=== PATIENT | female | born 1935 | race Caucasian/White ===

== ENCOUNTER 2018-06-23 09:13 | Day surgery (SDC) | payer OTHER ==
[2018-06-18 10:16] LABS: Absolute Lymphocytes (CBC) 1.5 K/uL (0.7-4.9); Absolute Monocytes 0.6 K/uL (0.1-1.3); Absolute Neutrophil 3.9 K/uL (1.8-8.0); Basophils % 1.2 % (0-1.3); Eosinophils % 6.5 % (0-4.4); Hematocrit 38.2 % (36.0-45.0); Lymphocytes % 22.6 % (15.3-44.8); MCH 29.7 pg (27.0-35.0); MCV 88.6 fL (80-100); MPV 8.9 fL (7.6-11.3); Monocytes % 8.9 % (3.3-12.3); RBC Red Blood Cell Count 4.31 M/uL (3.86-4.86)
--- NOTE | 2018-06-18 10:19 | RAD REPORT ---
EXAM DESCRIPTION: Julian Rouse (2 Views)06/18/2018 9:57 am CLINICAL HISTORY: Abdominal pain/preop exam. Atrial fibrillation. COMPARISON: 2010 FINDINGS: The lungs appear clear of acute infiltrate. The heart is mildly enlarged. Calcified lung granulomas are present. Scoliosis involves the thoracolumbar spine. IMPRESSION: No acute abnormalities displayed
[2018-06-18 10:30] LABS: Potassium 3.8 mmol/L (3.5-5.1)
--- OUTSIDE RECORDS SUMMARY | 2018-06-23 09:36 | XMS REPORT ---
:1935 Author Organization eClinicalWorks Care Team Providers Name Role Phone Shirley, Na Provider Role Unavailable Allergies, Adverse Reactions, Alerts Substance Reaction Event Type doxycycline Info Not Available Drug Allergy penicillin Info Not Available Drug Allergy codeine Info Not Available Drug Allergy Nabumetone Info Not Available Drug Allergy Hemocyte Plus Info Not Available Drug Allergy Ciprofloxacin Info Not Available Drug Allergy Bactrim DS Info Not Available Drug Allergy Problems Problem Type Condition Code Onset Dates Condition Status Problem Mixed hyperlipidemia E78.2 Active Problem 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 Active Problem Chronic atrial fibrillation I48.2 Active Problem Hypothyroidism E03.9 Active Problem DJD (degenerative joint disease) M19.90 Active Problem Hypertension I10 Active Problem Inguinal hernia K40.90 Active Problem Restless legs syndrome G25.81 Active Problem Chronic back pain M54.9 Active Problem Urinary incontinence R32 Active Assessment Urinary incontinence R32 Active Assessment Thinning hair L65.9 Active Assessment Hypertension I10 Active Problem Degeneration of lumbosacral M51.37 Active intervertebral disc Assessment Hypothyroidism E03.9 Active Problem Cervical disc herniation M50.20 Active Assessment Mixed hyperlipidemia E78.2 Active Problem Umbilical hernia without mention of K42.9 Active obstruction or gangrene Medications Medication Code Code Instructions Start End Date Status Dosage System Date Lotemax [facility] 99713238983 0.5 % Ophthalmic Active 1 drop into Four times a day affected eye Restasis [facility] 83694537431 0.05 % Active 1 drop into Ophthalmic Twice affected eye a day Synthroid [facility] 19009460170 75 MCG Orally Active 1 tablet on Once a day an empty stomach in the morning Tricor [facility] 62116528164 48 MG Orally Active 1 tablet Once a day Neurontin [facility] 87095370903 300 MG Orally Active 1 capsule Once a day before bedtime Lipitor [facility] 14965790054 40 MG Orally Active 1 tablet Once a day Aspir-81 [facility] 59185849502 81 MG Orally Active 1 tablet Once a day Betapace [facility] 69105173588 120 MG Orally Active 1 tablet every 12 hrs Results No Known Results Summary Purpose eClinicalWorks Submission
--- OUTSIDE RECORDS SUMMARY | 2018-06-23 09:36 | XMS REPORT ---
:1935 Author Organization eClinicalWorks Care Team Providers Name Role Phone Joyce Woodruff Provider Role Unavailable Allergies, Adverse Reactions, Alerts Substance Reaction Event Type Nabumetone Info Not Available Drug Allergy Hemocyte Plus Info Not Available Drug Allergy Ciprofloxacin Info Not Available Drug Allergy Bactrim DS Info Not Available Drug Allergy Problems Problem Type Condition Code Onset Dates Condition Status Problem DJD (degenerative joint disease) M19.90 Active Problem Hypertension I10 Active Problem Hypothyroidism E03.9 Active Problem Muscle ache M79.1 Active Problem Chronic atrial fibrillation I48.2 Active Problem Acute right-sided thoracic back pain M54.6 Active Problem Cervical disc herniation M50.20 Active Problem Degeneration of lumbosacral M51.37 Active intervertebral disc Problem Mixed hyperlipidemia E78.2 Active Problem Umbilical hernia without mention of K42.9 Active obstruction or gangrene Assessment Acute right-sided thoracic back pain M54.6 Active Assessment Muscle ache M79.1 Active Problem Restless legs syndrome G25.81 Active Problem Inguinal hernia K40.90 Active Problem Urinary incontinence R32 Active Problem 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 Active Problem Chronic back pain M54.9 Active Medications Medication Code Code Instructions Start End Date Status Dosage System Date Neurontin [facility] 89269591397 300 MG Orally Active 1 capsule Once a day before bedtime Synthroid [facility] 77160911751 75 MCG Orally Active 1 tablet on Once a day an empty stomach in the morning Medrol [facility] 84208751903 4 MG Orally as Apr 11, Active as directed directed [address] [facility] 14691788739 120 MG Orally Active 1 tablet every 12 hrs Restasis [facility] 41897271965 0.05 % Active 1 drop into Ophthalmic Twice affected eye a day Lotemax [facility] 83755891912 0.5 % Ophthalmic Active 1 drop into Four times a day affected eye Lipitor [place] 38144659110 40 MG Orally Active 1 tablet Once a day Tricor [facility] 28562246232 48 MG Orally Active 1 tablet Once a day Synthroid [facility] 13183800550 75 MCG Active TAKE 1 TABLET BY MOUTH EVERY DAY Aspir-[address] [facility] 77484623362 81 MG Orally Active 1 tablet Once a day Results No Known Results Summary Purpose eClinicalWorks Submission
--- OUTSIDE RECORDS SUMMARY | 2018-06-23 09:36 | XMS REPORT ---
[...] Active Problem Urinary incontinence R32 Active Assessment Hypothyroidism E03.9 Active Assessment Mixed hyperlipidemia E78.2 Active Problem Degeneration of lumbosacral M51.37 Active intervertebral disc Assessment Hypertension I10 Active Problem Cervical disc herniation M50.20 Active Assessment Annual visit for general adult Z00.00 Active medical examination without abnormal findings Problem Umbilical hernia without mention of K42.9 Active obstruction or gangrene Medications Medication Code Code Instructions Start End Date Status Dosage System Date Synthroid [facility] 29936082555 75 MCG Orally Active 1 tablet on Once a day an empty stomach in the morning Synthroid [facility] 04129404978 75 MCG Active TAKE 1 TABLET BY MOUTH EVERY DAY Betapace [facility] 23440673991 120 MG Orally Active 1 tablet every 12 hrs Aspir-81 [facility] 50291301112 81 MG Orally Active 1 tablet Once a day Lotemax [facility] 02869186406 0.5 % Ophthalmic Active 1 drop into Four times a day affected eye Lipitor [facility] 64229110727 40 MG Orally Active 1 tablet Once a day Neurontin [facility] 32386845835 300 MG Orally Active 1 capsule Once a day before bedtime Tricor [facility] 27163704744 48 MG Orally Active 1 tablet Once a day Restasis [facility] 70267998917 0.05 % Active 1 drop into Ophthalmic Twice affected eye a day Results No Known Results Summary Purpose eClinicalWorks Submission
--- OUTSIDE RECORDS SUMMARY | 2018-06-23 09:36 | XMS REPORT ---
[...] of K42.9 Active obstruction or gangrene Assessment Influenza vaccine administered Z23 Active Problem Restless legs syndrome G25.81 Active Problem Inguinal hernia K40.90 Active Problem Urinary incontinence R32 Active Problem 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 Active Problem Chronic back pain M54.9 Active Medications Medication Code Code Instructions Start End Date Status Dosage System Date Lotemax [facility] 00409380920 0.5 % Ophthalmic Active 1 drop into Four times a day affected eye Restasis [facility] 89164614783 0.05 % Active 1 drop into Ophthalmic Twice affected eye a day Synthroid [facility] 40444796357 75 MCG Orally Active 1 tablet on Once a day an empty stomach in the morning Medrol [facility] 02587920553 4 MG Orally as Apr 11, Active as directed directed 2017 [facility] 84210059799 81 MG Orally Active 1 tablet Once a day Neurontin [facility] 63985246986 300 MG Orally Active 1 capsule Once a day before bedtime Synthroid [facility] 79885803326 75 MCG Active TAKE 1 TABLET BY MOUTH EVERY DAY Lipitor [facility] 69107419243 40 MG Orally Active 1 tablet Once a day Tricor [facility] 44670558377 48 MG Orally Active 1 tablet Once a day Betapace [facility] 11264964335 120 MG Orally Active 1 tablet every 12 hrs Results No Known Results Immunizations Vaccine Administration Date FluAD May 20, 2018 Summary Purpose eClinicalWorks Submission
--- OUTSIDE RECORDS SUMMARY | 2018-06-23 09:36 | XMS REPORT ---
:1935 Author Organization eClinicalWorks Care Team Providers Name Role Phone Joyce Woodruff Provider Role Unavailable Allergies No Known Allergies Problems Problem Type Condition Code Onset Dates [...] mention of K42.9 Active obstruction or gangrene Problem Restless legs syndrome G25.81 Active Problem Inguinal hernia K40.90 Active Problem Urinary incontinence R32 Active Problem 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 Active Problem Chronic back pain M54.9 Active Medications No Known Medications Results No Known Results Summary Purpose eClinicalApptentive Submission
[2018-06-23] MEDS ORDERED: Ringers Lactate 1,000 ML IV ONE (10:11)
[2018-06-23] MEDS ORDERED: CEFAZOLIN/SWI 1gm 1 GM/10 ML SYR ONE (10:11)
[2018-06-23] MEDS ORDERED: ROCURONIUM 50 MG/5 ML VIAL IV ONE (10:51)
[2018-06-23] MEDS ORDERED: ONDANSETRON 4 MG/2 ML VIAL ONE (10:51)
[2018-06-23] MEDS ORDERED: LIDOCAINE 1% MPF 2 ML AMPULE ONE (10:51)
[2018-06-23] MEDS ORDERED: PROPOFOL 200 MG/20 ML VIAL IV ONE (10:51)
[2018-06-23] MEDS ORDERED: FENTANYL CITR 100 MCG/2 ML ONE (10:51)
[2018-06-23] MEDS ORDERED: NEOSTIGMINE 1 MG/ML -5 ML SYRINGE ONE ×2 (12:18→12:22)
[2018-06-23] MEDS ORDERED: GLYCOPYRROLATE 0.2 MG/ML SYR ONE (12:18)
[2018-06-23] MEDS: MEPERIDINE HCL 50 MG/ML AMP ONE ×4 (12:46→13:03)
[2018-06-23] MEDS ORDERED: MEPERIDINE HCL 50 MG/ML AMP ONE (13:12)
--- NOTE | 2018-06-23 23:36 | OP ---
Date of Procedure: 06/23/2018 Surgeon: Boris Wong MD Financial Aid Coordinator: WILLY Pena Preoperative Diagnoses: Incarcerated ventral hernia, left inguinal hernia. Postoperative Diagnoses: Incarcerated ventral hernia, left inguinal hernia. Procedure: Laparoscopic assisted repair of incarcerated ventral hernia and repair of left inguinal h ernia. Estimated Blood Loss: Minimal. Specimen: Hernia sac x2. Findings: As above. Anesthesia: General. Complications: None. Disposition: The patient tolerated procedure in stable condition and was taken to Recovery in good g eneral condition. Operative Note: The patient was brought to the OR and placed in supine position. General anesthesia was began. The patient was prepped and draped in the usual sterile fashion. Marcaine 0.5% was infi ltrated locally. A 15-blade was used to make a 2 cm left upper quadrant incision. Subcutaneous tiss ues divided. Fascia and plane divided, #1 Vicryl stay suture placed. Peritoneal cavity was entered with sharp and blunt dissection. A 12 mm trocar was placed into the peritoneal cavity and a 5 mm tro car placed in the left lower quadrant. Laparoscopy revealed incarcerated omentum into this periumbil ical hernia mostly on the left side and all the omentum was reduced with sharp and blunt dissection. Bleeding controlled with cautery. Then, 4 cm left periumbilical incision was made. Subcutaneous ti ssue divided. Hernia sac identified and excised, sent to Pathology as specimen, and then 3 cm defect remained, #1 PDS and #1 Prolene. I think she had a side pocket there that was closed with #1 Prolen e, was used to close the fascial defect. Then pneumoperitoneum reestablished. A Bard balloon mesh s ystem 15 x 10 cm placed into the peritoneal cavity. The standard technique used and the balloon syst em utilized and the entire coverage of the hernia defect was accomplished with at least 3 cm border i n every direction and then AbsorbaTack was used to secure the mesh to the peritoneal surface. Then a ll trocars removed in direct vision. Stay sutures were tied to each other to reapproximate the fasci al defect. Subcutaneous wounds were irrigated. Bleeding controlled with cautery. A 3-0 chromic was used to approximate the subcutaneous tissue and close the skin and then left lower quadrant a 4 cm i ncision was made, subcutaneous tissue divided. Shree fascia identified and divided. Aponeurosis id entified and mobilized inferiorly to expose shelving edge. Ilioinguinal nerve identified and retract ed out of the field of dissection. Indirect sac and cord round ligament identified, excised, sent to Pathology as specimen. Tied with 2-0 Prolene and 2-0 chromic sutures as needed. Then Marlex mesh p lug placed in the internal ring, secured with VersaTack stapler. Onlay mesh placed on the inguinal f manisha, secured medially to the pubic tubercle, inferiorly to the shelving edge, superiorly to the conj oined tendon, laterally to each other, and then ilioinguinal nerve placed back in their anatomic loca tion. A 2-0 Prolene used to close the aponeurosis, 3-0 chromic used to approximate the subcutaneous tissue and close the skin. Sterile dressing was applied. The patient was awakened and taken to [facility] in good general condition. Discharge Note: The patient will go to Day Surgery and home when stable. Disposition: Home. Condition: Stable. Discharge Instructions: Resume home medications and diet. Activity as tolerated. No heavy lifting. Remove outer dressing in 2 days. Shower. Keep wound clean and dry. Keep Steri-Strips on at all t imes. Abdominal binder as ordered and incentive spirometry q.1 hour while awake and Tylenol or Advil for pain. Follow up in my office in 1 week. Call for appointment. KATIE/CIARA Voice ID: [id number] Report ID: [id number]
== END 2018-06-23 14:45 | disposition home or self-care (01) ==
LOC: OR 09:13
PROVIDERS: ATTEND Surgery
PROC: 0WUF0JZ Supplement Abdominal Wall with Synthetic Substitute, Open Approach (ICD-10-PCS; principal; 2018-06-23 10:30)
PROC: 0YU60JZ Supplement Left Inguinal Region with Synthetic Substitute, Open Approach (ICD-10-PCS; 2018-06-23 10:30)
DX: K43.6 Other and unspecified ventral hernia with obstruction, without gangrene (principal); K40.90 Unilateral inguinal hernia, without obstruction or gangrene, not specified as recurrent; I48.91 Unspecified atrial fibrillation; I10 Essential (primary) hypertension; E07.9 Disorder of thyroid, unspecified
CPT/HCPCS: 36415; 49505; 49561; 49568; 71046; 80048; 85025; 88302 ×2; J0690; J2001; J2175 ×2; J2405; J2704; J2710 ×2; J3010

== ENCOUNTER → 2018-10-24 | Day surgery (SDC) | payer OTHER ==
--- OUTSIDE RECORDS SUMMARY | 2018-10-24 09:31 | XMS REPORT ---
[...] End Date Status Dosage System Date Lotemax [facility] 02331822100 0.5 % Ophthalmic Active 1 drop into Four times a day affected eye Restasis [facility] 92577249584 0.05 % Active 1 drop into Ophthalmic Twice affected eye a day Synthroid [facility] 12192040426 75 MCG Orally Active 1 tablet on Once a day an empty stomach in the morning Tricor [facility] 28462607944 48 MG Orally Active 1 tablet Once a day Neurontin [facility] 71789504714 300 MG Orally Active 1 capsule Once a day before bedtime Lipitor [facility] 79807381183 40 MG Orally Active 1 tablet Once a day Aspir-81 [facility] 44422087127 81 MG Orally Active 1 tablet Once a day Betapace [facility] 58728570123 120 MG Orally Active 1 tablet every 12 hrs Results No Known Results Summary Purpose eClinicalWorks Submission
--- OUTSIDE RECORDS SUMMARY | 2018-10-24 09:31 | XMS REPORT ---
[...] End Date Status Dosage System Date Synthroid [facility] 61950049615 75 MCG Orally Active 1 tablet on Once a day an empty stomach in the morning Synthroid [facility] 01002816061 75 MCG Active TAKE 1 TABLET BY MOUTH EVERY DAY Betapace [facility] 82673777534 120 MG Orally Active 1 tablet every 12 hrs Aspir-81 [facility] 26122669415 81 MG Orally Active 1 tablet Once a day Lotemax [facility] 84363743626 0.5 % Ophthalmic Active 1 drop into Four times a day affected eye Lipitor [facility] 20942313557 40 MG Orally Active 1 tablet Once a day Neurontin [facility] 40644665548 300 MG Orally Active 1 capsule Once a day before bedtime Tricor [facility] 70917826482 48 MG Orally Active 1 tablet Once a day Restasis [facility] 00035815959 0.05 % Active 1 drop into Ophthalmic Twice affected eye a day Results No Known Results Summary Purpose eClinicalWorks Submission
--- OUTSIDE RECORDS SUMMARY | 2018-10-24 09:31 | XMS REPORT ---
[...] Date Status Dosage System Date Neurontin [facility] 10976435202 300 MG Orally Active 1 capsule Once a day before bedtime Synthroid [facility] 30851872628 75 MCG Orally Active 1 tablet on Once a day an empty stomach in the morning Medrol [facility] 77207418307 4 MG Orally as Apr 11, Active as directed directed 2017 Betapace [facility] 36544955715 120 MG Orally Active 1 tablet every 12 hrs Restasis [facility] 87846109892 0.05 % Active 1 drop into Ophthalmic Twice affected eye a day Lotemax [facility] 29293905498 0.5 % Ophthalmic Active 1 drop into Four times a day affected eye Lipitor [place] 47527175288 40 MG Orally Active 1 tablet Once a day Tricor [facility] 14205184079 48 MG Orally Active 1 tablet Once a day Synthroid [facility] 84213186706 75 MCG Active TAKE 1 TABLET BY MOUTH EVERY DAY Aspir-81 [facility] 23563128748 81 MG Orally Active 1 tablet Once a day Results No Known Results Summary Purpose eClinicalWorks Submission
--- OUTSIDE RECORDS SUMMARY | 2018-10-24 09:32 | XMS REPORT ---
[...] Medications Results No Known Results Summary Purpose [facility] Submission
--- OUTSIDE RECORDS SUMMARY | 2018-10-24 09:32 | XMS REPORT ---
[...] Dosage System Date Lotemax [facility] 87683520071 0.5 % Ophthalmic Active 1 drop into Four times a day affected eye Restasis [facility] 02932936466 0.05 % Active 1 drop into Ophthalmic Twice affected eye a day Synthroid [facility] 94476644258 75 MCG Orally Active 1 tablet on Once a day an empty stomach in the morning Medrol [facility] 54362657102 4 MG Orally as Apr 11, Active as directed directed 2017 [facility] 28050181592 81 MG Orally Active 1 tablet Once a day Neurontin [facility] 36645022273 300 MG Orally Active 1 capsule Once a day before bedtime Synthroid [facility] 62808210574 75 MCG Active TAKE 1 TABLET BY MOUTH EVERY DAY Lipitor [facility] 87938600872 40 MG Orally Active 1 tablet Once a day Tricor [facility] 88573113539 48 MG Orally Active 1 tablet Once a day Betapace [facility] 65881160958 120 MG Orally Active 1 tablet every 12 hrs Results No Known Results Immunizations Vaccine Administration Date FluAD May 20, 2018 Summary Purpose eClinicalWorks Submission
--- OUTSIDE RECORDS SUMMARY | 2018-10-24 09:32 | XMS REPORT ---
[...] E03.9 Active Problem Muscle ache M79.1 Active Assessment Urinary incontinence R32 Active Problem Chronic atrial fibrillation I48.2 Active Assessment Blood tests for routine general Z00.00 Active physical examination Problem Acute right-sided thoracic back pain M54.6 Active Problem Cervical disc herniation M50.20 Active Problem Degeneration of lumbosacral M51.37 Active intervertebral disc Problem Mixed hyperlipidemia E78.2 Active Problem Umbilical hernia without mention of K42.9 Active obstruction or gangrene Assessment Mixed hyperlipidemia E78.2 Active Assessment Hypertension I10 Active Assessment Thinning hair L65.9 Active Assessment Hypothyroidism E03.9 Active Problem Restless legs syndrome G25.81 Active Problem Inguinal hernia K40.90 Active Problem Urinary incontinence R32 Active Problem 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 Active Problem Chronic back pain M54.9 Active Medications Medication Code Code Instructions Start End Date Status Dosage System Date Betapace [facility] 61611816715 120 MG Orally Active 1 tablet every [address] [facility] 36854025656 48 MG Orally Active 1 tablet Once a day Synthroid [facility] 40979445098 75 MCG Active TAKE 1 TABLET BY MOUTH EVERY DAY Synthroid [facility] 93386029901 75 MCG Orally Active 1 tablet on Once a day an empty stomach in the morning Restasis [facility] 49757099021 0.05 % Active 1 drop into Ophthalmic Twice affected eye a day Neurontin [facility] 22434417589 300 MG Orally Active 1 capsule Once a day before bedtime Lipitor [facility] 39499284151 40 MG Orally Active 1 tablet Once a day Medrol [facility] 77488132265 4 MG Orally as Apr 11, Active as directed directed 2017-[address] [facility] 57119250462 81 MG Orally Active 1 tablet Once a day Lotemax [facility] 76183006918 0.5 % Ophthalmic Active 1 drop into Four times a day affected eye Results No Known Results Summary Purpose eClinicalWorks Submission
--- NOTE | 2018-10-24 10:50 | RAD REPORT ---
EXAM DESCRIPTION: US - Guided FNA Non Breast - 10/24/2018 10:29 am CLINICAL HISTORY: E04.2 COMPARISON: Extremity Nonvascular Limited dated 09/20/2016; Thyroid Para Parotid Gland dated 10/09/2018 FINDINGS: Preoperative diagnosis: Right thyroid nodule. Post operative diagnosis: Same. Conscious Sedation: None Fluoroscopy time: None Contrast used: None Estimated blood loss: Minimal Specimens:4 x 25 gauge FNA samples The right neck was prepped and draped in the usual sterile fashion. 1% lidocaine was infiltrated into the subcutaneous tissues for local anesthesia. Real time ultrasound scanning of the right neck demon strated 1 cm nodule. Under ultrasound guidance, using multiple 25 gauge FNA needles, 4 specimens were obtained of this lesion and sent to pathology for evaluation. There were no complications. IMPRESSION: Successful ultrasound-guided right thyroid nodule FNA procedure.
== END ==
LOC: FNA 09:29
PROVIDERS: ATTEND Nurse Practitioner Family
PROC: 0G9H3ZX Drainage of Right Thyroid Gland Lobe, Percutaneous Approach, Diagnostic (ICD-10-PCS; principal; 2018-10-24)
PROC: BG44ZZZ Ultrasonography of Thyroid Gland (ICD-10-PCS; 2018-10-24)
DX: E04.2 Nontoxic multinodular goiter (principal)
CPT/HCPCS: 88162; 88305

== ENCOUNTER 2020-11-27 06:46 | Emergency (ER) | payer OTHER ==
--- OUTSIDE RECORDS SUMMARY | 2020-11-27 06:48 | XMS REPORT | Continuity of Care Document ---
:1935 Author Organization [facility] t Address [address] [place] [address] Care Team Providers Name Role Phone Unavailable Unavailable Unavailable Problems This patient has no known problems. Allergies, Adverse Reactions, Alerts Allergy Allergy Status Severity Reaction(s) Onset Inactive Treating Comm ents Source Name Type Date Date Clinician Hemocyte Adverse Active Info Not [facility] Bactrim Adverse Active Info Not [facility] Reaction Available [facility] Nabumeto Adverse Active Info Not [facility] Reaction Available [facility] [place] Ciproflo Adverse Active Info Not [facility] xacin Reaction Available [facility] Medications Ordered Filled Start Stop Current Ordering Indication Dosage Frequency Signature Comments Components Source Medication Medication Date Date Medication? Clinician (SIG) Name Name Medrol Medrol 2018-0 Yes Na Shirley [facility] Lotemax Lotemax Yes Na Shirley [address] [facility] Restasis Restasis Yes Na Shirley [address] [facility] [address] [facility] Synthroid Synthroid Yes Na Shirley [address] [facility] Tricor Tricor Yes Na Shirley [address] [facility] Neurontin Neurontin Yes Na Shirley [address] [facility] Lipitor Lipitor Yes Na Shirley [address] [facility] -81 Aspir-81 Yes Na Shirley [address] [facility] Synthroid Synthroid Yes Na Shirley TAKE [address] [facility] TABLET BY [facility] M[facility]TH [facility] EVERY DAY l [facility] ent [facility] Betapace Betapace Yes Na Shirley [address] [facility] Immunizations Ordered Filled Immunization Date Status Comments [facility] e Immunization Name Name FluAD FluAD 2019-06-[address] [facility] FluAD FluAD 2018-05-[address] [facility] Procedures This patient has no known procedures. Encounters Start End Encounter Admission Attending Care Care Encounter Source Date/Time Date/Time Type Type Clinicians Facility Department ID 2020-09-08 2020-09-08 Outpatient [facility] [id number] [facility] 2020-09-06 2020-09-06 Outpatient [facility] [id number] [facility] 2020-08-04 2020-08-04 Outpatient [facility] [id number] [facility] 2020-07-19 2020-07-19 Outpatient [facility] [id number] [facility] 2020-07-18 2020-07-18 Outpatient [facility] [id number] [facility] 2020-02-03 2020-02-03 [facility] [id number] [facility] 09[facility]40[facility]00 09:40:00 [facility] 2019-08-05 2019-08-05 [facility] [id number] [facility] 10[facility]20[facility]00 10:20:00 [facility] 2019-06-12 2019-06-12 [facility] [id number] [facility] 13[facility]20:00 13:20:00 [facility] 2019-02-11 2019-02-11 [facility] [id number] [facility] 10:00:00 10:00:00 [facility] 2018-08-15 2018-08-15 [facility] [id number] [facility] 10:15:00 10:15:00 [facility] 2018-05-20 2018-05-20 [facility] [id number] [facility] 09:15:00 09:15:00 [facility] 2018-04-18 2018-04-18 [facility] [id number] [facility] 09:18[facility]00 09:18:00 [facility] 2018-04-11 2018-04-11 [facility] [id number] 13:15:00 13:15:00 [facility] 2018-02-11 2018-02-11 [facility] [id number] [address] 09:30:00 09:30:00 [facility] 2017-11-27 2017-11-27 [facility] [id number] [facility] 08:15:00 08:15:00 [facility] Results This patient has no known results.
[2020-11-27 07:31] LABS: Absolute Lymphocytes (CBC) 1.3 K/uL (0.7-4.9); Basophils % 1.2 % (0-1.3); Hematocrit 32.5 % (36.0-45.0); Lymphocytes % 24.5 % (15.3-44.8); MPV 7.6 fL (7.6-11.3); RBC Red Blood Cell Count 3.66 M/uL (3.86-4.86)
[2020-11-27 07:50] LABS: BUN Blood Urea Nitrogen 15 mg/dL (7-18); Bicarbonate 31 mmol/L (21-32); Glucose Level 88 mg/dL (74-106); Magnesium 2.1 mg/dL (1.8-2.4); NT PRO-BNP 597 pg/mL (<450); Potassium 3.3 mmol/L (3.5-5.1); Sodium Level 144 mmol/L (136-145); Troponin (Emerg Dept Use Only) < 0.02 ng/mL (0.0-0.045)
--- NOTE | 2020-11-27 08:34 | RAD REPORT ---
EXAM DESCRIPTION: RAD - Chest Single View - 11/27/2020 8:06 am CLINICAL HISTORY: left arm pain Chest pain. COMPARISON: Chest Pa And Lat (2 Views) dated 06/18/2018; CHEST PA AND LAT 2 VIEW dated 02/20/2011; UTE ST PA AND LAT 2 VIEW dated 10/15/2005 FINDINGS: Portable technique limits examination quality. The lungs are grossly clear. The heart is mildly enlarged in size. No displaced fractures.Mild degene rate change in both shoulders. IMPRESSION: No acute intrathoracic process suspected.
--- NOTE | 2020-11-27 09:35 | EDPHYS ---
Physician Documentation [facility] Name: Melani Jimenez Age: 85 yrs Sex: Female : 1935 Arrival Date: 11/27/2020 Time: 06:49 Bed 8 Private MD: ED Physician Salvador Infante HPI: 11/27 07:25 This 85 yrs old Female presents to ER via Ambulatory with complaints of Arm rn Pain. 07:25 The patient or guardian complains of pain, that is acute. The complaints affect the rn left bicep. Onset: The symptoms/episode began/occurred this morning. Modifying factors: The symptoms are alleviated by nothing. the symptoms are aggravated by nothing. Associated signs and symptoms: Pertinent positives: pain, Pertinent negatives: decreased range of motion, deformity, erythema, fever, numbness, swelling, weakness. Severity of symptoms: At their worst the symptoms were mild, in the emergency department the symptoms are unchanged. The patient has not experienced similar symptoms in the past. The patient has not recently seen a physician. Reports left arm pain, began this morning, no assoc chest pain/sob, no nausea. No weakness or numbness. . 07:53 Pt states doing yard work yesterday and thinks that may be the reason but wasn't sure rn so came in for evlauation.. Historical: - Allergies: 07:12 Ampicillin; bb 07:12 annaprox; bb 07:12 Bextra; bb 07:12 Ciprofloxacin; bb 07:12 Codeine; bb 07:12 Deltasone; bb 07:12 Doryx; bb 07:12 Hemocyte-F; bb 07:12 Lisinopril; bb 07:12 Relafen; bb 07:12 tramadol; bb - PMHx: 07:12 Atrial Fib; Degenerative disc disease; High Cholesterol; Hypothyroidism; RLS; bb - PSHx: 07:12 Hysterectomy; Cholecystectomy; Knee surgery; Hernia repair; bunion; wrist surgery; bb cataract surgery; - Immunization history:: Adult Immunizations up to date. - Social history:: Smoking status: Patient denies any tobacco usage or history of. - Family history:: not pertinent. - Hospitalizations: : No recent hospitalization is reported. ROS: 07:25 Constitutional: Negative for fever, chills, and weight loss, Eyes: Negative for injury, rn pain, redness, and discharge, Neck: Negative for injury, pain, and swelling, Cardiovascular: Negative for chest pain, palpitations, and edema, Respiratory: Negative for shortness of breath, cough, wheezing, and pleuritic chest pain, Abdomen/GI: Negative for abdominal pain, nausea, vomiting, diarrhea, and constipation, Back: Negative for injury and pain, MS/Extremity: Negative for injury and deformity, Skin: Negative for injury, rash, and discoloration, Neuro: Negative for headache, weakness, numbness, tingling, and seizure. Exam: 07:25 Constitutional: This is a well developed, well nourished patient who is awake, alert, rn and in no acute distress. Head/Face: Normocephalic, atraumatic. Neck: Trachea midline, no masses palpated, and no cervical lymphadenopathy. Supple, full range of motion without nuchal rigidity, or vertebral point tenderness. No Meningismus. Cardiovascular: Regular rate and rhythm. No pulse deficits. Respiratory: No increased work of breathing, no retractions or nasal flaring. Abdomen/GI: Soft, non-tender Skin: Warm, dry, no cellulitis MS/ Extremity: Pulses equal, no cyanosis. Neurovascular intact. Full, normal range of motion. Equal circumference. Neuro: Awake and alert, GCS 15, oriented to person, place, time, and situation. Cranial nerves II-XII grossly intact. Motor strength 5/5 in all extremities. Sensory grossly intact. Vital Signs: 07:07 BP 198 / 91; Pulse 64; Resp 18 S; Temp 98.7(O); Pulse Ox 97% on R/A; Weight 61.23 kg bb (R); Height 5 ft. 2 in. (157.48 cm) (R); Pain 5/10; 07:24 BP 172 / 80; Pulse 57; Resp 16; ss 08:36 BP 173 / 66; Pulse 63; Resp 15; Pulse Ox 98% on R/A; hb 09:08 BP 184 / 70; Pulse 54; Resp 16; ss 07:07 Body Mass Index 24.69 (61.23 kg, 157.48 cm) bb MDM: 06:59 Patient medically screened. rn 09:32 Differential diagnosis: tendonitis, cardiac related, arthritis. Data reviewed: vital rn signs, nurses notes, lab test result(s), EKG, radiologic studies, plain films, and as a result, I will discharge patient. Counseling: I had a detailed discussion with the patient and/or guardian regarding: the historical points, exam findings, and any diagnostic results supporting the discharge/admit diagnosis, lab results, radiology results, the need for outpatient follow up, to return to the emergency department if symptoms worsen or persist or if there are any questions or concerns that arise at home. Special discussion: I discussed with the patient/guardian in detail that at this point there is no indication for admission to the hospital. It is understood, however, that if the symptoms persist or worsen the patient needs to return immediately for re-evaluation. ED course: No acute etiology of left arm pain found, ecg without ischemia, trop neg x 2, no gross deformity, stable vitals, will dc home as may be due to yard work she performed yesterday.. 11/27 07:06 Order name: Basic Metabolic Panel; Complete Time: 07:53 rn 11/27 07:06 Order name: CBC with Diff; Complete Time: 07:50 rn 11/27 07:06 Order name: Magnesium; Complete Time: 07:53 rn 11/27 07:06 Order name: NT PRO-BNP; Complete Time: 07:53 rn 11/27 07:06 Order name: Troponin (emerg Dept Use Only); Complete Time: 07:53 rn 11/27 08:37 Order name: Troponin (emerg Dept Use Only) rn 11/27 07:06 Order name: XRAY Chest (1 view); Complete Time: 08:36 rn 11/27 07:06 Order name: EKG; Complete Time: 07:06 rn 11/27 07:06 Order name: Cardiac monitoring; Complete Time: 07:23 rn 11/27 07:06 Order name: EKG - Nurse/Tech; Complete Time: 07:23 rn 11/27 07:06 Order name: IV Saline Lock; Complete Time: 07:23 rn 11/27 07:06 Order name: Labs collected and sent; Complete Time: 07:23 rn 11/27 07:06 Order name: O2 Per Protocol; Complete Time: 07:24 rn 11/27 08:37 Order name: Troponin (Emerg Dept Use Only); Complete Time: 09:31 EDMS 11/27 07:06 Order name: O2 Sat Monitoring; Complete Time: 07:24 rn Administered Medications: No medications were administered Disposition: 11/27/20 09:34 Discharged to Home. Impression: Pain in left arm. - Condition is Stable. - Discharge Instructions: Musculoskeletal Pain, Pain Without a Known Cause. - Medication Reconciliation Form, Thank You Letter, Antibiotic Education, Prescription Opioid Use form. - Follow up: Private Physician; When: As needed; Reason: Recheck today's complaints, Re-evaluation by your physician. - Problem is new. - Symptoms have improved. Signatures: Dispatcher [employer] EDMI Brittany Mccartney RN RN Salvador Christensen MD MD rn Smirch, Shelby, RN RN ss Corrections: (The following items were deleted from the chart) 09:42 09:34 11/27/2020 09:34 Discharged to Home. Impression: Pain in left arm. Condition is ss Stable. Forms are Medication Reconciliation Form, Thank You Letter, Antibiotic Education, Prescription Opioid Use. Follow up: Private Physician; When: As needed; Reason: Recheck today's complaints, Re-evaluation by your physician. Problem is new. Symptoms have improved. rn
--- NOTE | 2020-11-27 09:35 | ER ---
Nurse's Notes [facility] Name: Melani Jimenez Age: 85 yrs Sex: Female : 1935 Arrival Date: 11/27/2020 Time: 06:49 Bed 8 Private MD: Diagnosis: Pain in left arm Presentation: 11/27 07:07 Chief complaint: Patient states: she woke up this morning with left arm pain says she bb worked in the garden yesterday but this pain feels different than muscle pain she denies nausea, or shortness of breath. Coronavirus screen: At this time, the client does not indicate any symptoms associated with coronavirus-19. Ebola Screen: No symptoms or risks identified at this time. Initial Sepsis Screen: Does the patient meet any 2 criteria? No. Patient's initial sepsis screen is negative. Does the patient have a suspected source of infection? No. Patient's initial sepsis screen is negative. Risk Assessment: Do you want to hurt yourself or someone else? Patient reports no desire to harm self or others. Onset of symptoms was November 27, 2020. 07:07 Method Of Arrival: Ambulatory bb 07:07 Acuity: DUC 3 bb Historical: - Allergies: 07:12 Ampicillin; bb 07:12 annaprox; bb 07:12 Bextra; bb 07:12 Ciprofloxacin; bb 07:12 Codeine; bb 07:12 Deltasone; bb 07:12 Doryx; bb 07:12 Hemocyte-F; bb 07:12 Lisinopril; bb 07:12 Relafen; bb 07:12 tramadol; bb - PMHx: 07:12 Atrial Fib; Degenerative disc disease; High Cholesterol; Hypothyroidism; RLS; bb - PSHx: 07:12 Hysterectomy; Cholecystectomy; Knee surgery; Hernia repair; bunion; wrist surgery; bb cataract surgery; - Immunization history:: Adult Immunizations up to date. - Social history:: Smoking status: Patient denies any tobacco usage or history of. - Family history:: not pertinent. - Hospitalizations: : No recent hospitalization is reported. Screenin:24 Abuse screen: Denies threats or abuse. Denies injuries from another. Nutritional ss screening: No deficits noted. Tuberculosis screening: Never had TB. Fall Risk None identified. Assessment: 07:24 General: Appears in no apparent distress. comfortable, Behavior is calm, cooperative, ss Denies fever, feeling ill, fatigue, chills. Pain: Complains of pain in left arm Pain currently is 4 out of 10 on a pain scale. Quality of pain is described as dull, Pain began "noticed it this morning when waking up. It feels different than like a muscle pain. I was working in the garden yesterday though." Is continuous. Neuro: Level of Consciousness is awake, alert, obeys commands, Oriented to person, place, time, situation, Gambling Supervisor are equal bilaterally Moves all extremities. Speech is normal. Cardiovascular: Capillary refill < 3 seconds is brisk in bilateral fingers. Respiratory: Airway is patent Trachea midline Respiratory effort is even, unlabored, Respiratory pattern is regular, symmetrical, Denies cough, shortness of breath pain with respiration, pain with cough, pain with movement. GI: Abdomen is non-distended, Patient currently denies abdominal pain, diarrhea, nausea, vomiting. : No signs and/or symptoms were reported regarding the genitourinary system. EENT: Nares are clear Oral mucosa is moist. Derm: Skin is intact, is healthy with good turgor, Skin is dry, Skin is pink, warm \\T\\ dry. Musculoskeletal: Circulation, motion, and sensation intact. Range of motion: intact in all extremities, Swelling absent. 08:36 Reassessment: Patient appears in no apparent distress at this time. Patient and/or hb family updated on plan of care and expected duration. Pain level reassessed. Patient is alert, oriented x 3, equal unlabored respirations, skin warm/dry/pink. 08:47 Reassessment: Patient appears in no apparent distress at this time. Patient and/or ss family updated on plan of care and expected duration. Pain level reassessed. Patient is alert, oriented x 3, equal unlabored respirations, skin warm/dry/pink. Repeat troponin sent to lab. Awaiting results prior to disposition. remains at bedside. Call light within reach. Warm blanket given for comfort. Vital Signs: 07:07 BP 198 / 91; Pulse 64; Resp 18 S; Temp 98.7(O); Pulse Ox 97% on R/A; Weight 61.23 kg bb (R); Height 5 ft. 2 in. (157.48 cm) (R); Pain 5/10; 07:24 BP 172 / 80; Pulse 57; Resp 16; ss 08:36 BP 173 / 66; Pulse 63; Resp 15; Pulse Ox 98% on R/A; hb 09:08 BP 184 / 70; Pulse 54; Resp 16; ss 07:07 Body Mass Index 24.69 (61.23 kg, 157.48 cm) bb ED Course: 06:49 Patient arrived in ED. bp1 06:59 Salvador Infnate MD is Attending Physician. rn 07:09 Triage completed. bb 07:12 Arm band placed on Patient placed in an exam room, on a stretcher, on fountain pen nibs inspector, bb on pulse oximetry. EKG completed in triage. Results shown to MD. Family accompanied patient. 07:20 Inserted saline lock: 20 gauge in right antecubital area, using aseptic technique. ss Blood collected. 07:23 Alice Thompson, MC is Primary Nurse. ss 07:24 Patient has correct armband on for positive identification. ss 08:06 XRAY Chest (1 view) In Process Unspecified. EDMS 09:33 Troponin (emerg Dept Use Only) Sent. sv 09:41 No provider procedures requiring assistance completed. IV discontinued, intact, ss bleeding controlled, No redness/swelling at site. Pressure dressing applied. Administered Medications: No medications were administered Outcome: 09:34 Discharge ordered by MD. rn 09:41 Discharged to home ambulatory. ss 09:41 Condition: good 09:41 Discharge instructions given to patient, family, Instructed on discharge instructions, follow up and referral plans. Demonstrated understanding of instructions, follow-up care. 09:42 Patient left the ED. ss Signatures: Dispatcher [employer] EDFL Yudith Ford RN RN sv Ballard, Brenda, RN RN bb Nieto, Roman, MD MD rn Smirch, Shelby, RN RN ss Baxter, Heather, RN RN hb [place], Brittany bp1
--- NOTE | 2020-11-28 07:16 | EKG ---
Test Date: 2020-11-27 Test Time: 07:01:31 Quality Management Nurse: MEASUREMENT RESULTS: Intervals: Rate: 62 MA: 250 QRSD: 88 QT: 410 QTc: 416 [place]: P: 72 MA: 250 QRS: -16 T: 38 INTERPRETIVE STATEMENTS: Sinus rhythm with 1st degree AV block Otherwise normal ECG Compared to ECG 09/08/2020 13:41:18 Sinus bradycardia no longer present Sinus arrhythmia no longer present Ventricular premature complex(es) no longer present Myocardial infarct finding no longer present Electronically Signed On 11-28-20 07:14:10 CDT by Yaya Knight
== END 2020-11-27 09:42 | disposition home or self-care (01) ==
LOC: ER 06:46
DX: M79.602 Pain in left arm (principal); Z88.1 Allergy status to other antibiotic agents; Z88.5 Allergy status to narcotic agent; Z88.8 Allergy status to other drugs, medicaments and biological substances
CPT/HCPCS: 36415; 71045; 80048; 83735; 83880; 84484; 85025; 93005; 99284

== ENCOUNTER 2021-05-03 19:30 | Emergency (ER) | payer OTHER ==
[2021-05-03 20:51] LABS: Absolute Lymphocytes (CBC) 1.2 K/uL (0.7-4.9); Basophils % 0.6 % (0-1.3); Hematocrit 36.6 % (36.0-45.0); Lymphocytes % 13.3 % (15.3-44.8); MPV 7.5 fL (7.6-11.3); RBC Red Blood Cell Count 4.03 M/uL (3.86-4.86)
[2021-05-03 20:59] LABS: Protime INR 1.15
--- NOTE | 2021-05-03 21:03 | RAD REPORT ---
EXAM DESCRIPTION: RAD - Chest Single View - 05/03/2021 8:50 pm CLINICAL HISTORY: PAIN Chest pain. COMPARISON: Chest Single View dated 11/27/2020; Chest Pa And Lat (2 Views) dated 06/18/2018; CHEST PA AND LAT 2 VIEW dated 02/20/2011; CHEST PA AND LAT 2 VIEW dated 10/15/2005 FINDINGS: Portable technique limits examination quality. The lungs are grossly clear. The heart is mildly enlarged in size. No displaced fractures. IMPRESSION: No acute intrathoracic process suspected.
[2021-05-03] MEDS ORDERED: NA CHLORIDE 0.9% 1,000 ML ONE (21:22)
[2021-05-03] MEDS ORDERED: NA CHLORIDE 0.9% 500 ML ONE (21:23)
[2021-05-03 21:34] LABS: BUN Blood Urea Nitrogen 24 mg/dL (7-18); Bicarbonate 28 mmol/L (21-32); Glucose Level 163 mg/dL (74-106); Potassium 3.5 mmol/L (3.5-5.1); Sodium Level 140 mmol/L (136-145)
[2021-05-03 21:35] LABS: ALT/SGPT 36 U/L (12-78); AST/SGOT 47 U/L (15-37); Albumin 3.7 g/dL (3.4-5.0); Alkaline Phosphatase 61 U/L (45-117); Bilirubin Direct 0.1 mg/dL (0-0.2); Bilirubin Total 0.4 mg/dL (0.2-1.0); Lipase 166 U/L (73-393); Magnesium 2.2 mg/dL (1.8-2.4); NT PRO-BNP 1570 pg/mL (<450); Protein, Total 7.6 g/dL (6.4-8.2); Troponin (Emerg Dept Use Only) < 0.02 ng/mL (0.0-0.045)
[2021-05-03] MEDS ORDERED: ONDANSETRON 4 MG/2 ML VIAL ONE (21:45)
[2021-05-03] MEDS ORDERED: MORPHINE 2 MG/ML SYR ONE (21:45)
--- NOTE | 2021-05-03 23:16 | EDPHYS ---
Physician Documentation [facility] Name: Melani Jimenez Age: 85 yrs Sex: Female : 1935 Arrival Date: 05/03/2021 Time: 19:35 Bed 4 Private MD: Liliana Shirley ED Physician Bishop Rodas HPI: 05/03 20:53 This 85 yrs old Female presents to ER via Ambulatory with complaints of fazal Abdominal Pain. 20:53 The patient presents with abdominal pain in the left lower quadrant. Onset: The fazal symptoms/episode began/occurred 3 day(s) ago. The symptoms do not radiate. Associated signs and symptoms: none. The symptoms are described as constant. Modifying factors: The symptoms are alleviated by nothing, the symptoms are aggravated by nothing. Severity of pain: At its worst the pain was mild in the emergency department the pain is unchanged. The patient has not experienced similar symptoms in the past. Historical: - Allergies: 20:14 Codeine; wg 20:14 Ciprofloxacin; wg 20:14 annaprox; wg 20:14 Ampicillin; wg 20:14 Doryx; wg 20:14 Lisinopril; wg 20:14 tramadol; wg 20:14 relafen; wg 20:14 Bextra; wg 20:14 Deltasone; wg 20:14 Hemocyte-F; wg - Home Meds: 20:14 aspirin 81 mg oral tab [Active]; Melatonin Oral [Active]; wg - Immunization history:: Adult Immunizations up to date. - Social history:: Smoking status: Patient denies any tobacco usage or history of. - Family history:: not pertinent. ROS: 20:53 Constitutional: Negative for fever, chills, and weight loss, Eyes: Negative for injury, fazal pain, redness, and discharge, ENT: Negative for injury, pain, and discharge, Neck: Negative for injury, pain, and swelling, Cardiovascular: Negative for chest pain, palpitations, and edema, Respiratory: Negative for shortness of breath, cough, wheezing, and pleuritic chest pain, Back: Negative for injury and pain, : Negative for injury, bleeding, discharge, and swelling, MS/Extremity: Negative for injury and deformity, Skin: Negative for injury, rash, and discoloration, Neuro: Negative for headache, weakness, numbness, tingling, and seizure, Psych: Negative for depression, anxiety, suicide ideation, homicidal ideation, and hallucinations, Allergy/Immunology: Negative for hives, rash, and allergies, Endocrine: Negative for neck swelling, polydipsia, polyuria, polyphagia, and marked weight changes, Hematologic/Lymphatic: Negative for swollen nodes, abnormal bleeding, and unusual bruising. 20:53 Abdomen/GI: Positive for abdominal pain, of the left lower quadrant. Exam: 20:53 Constitutional: This is a well developed, well nourished patient who is awake, alert, fazal and in no acute distress. Head/Face: Normocephalic, atraumatic. Eyes: Pupils equal round and reactive to light, extra-ocular motions intact. Lids and lashes normal. Conjunctiva and sclera are non-icteric and not injected. Cornea within normal limits. Periorbital areas with no swelling, redness, or edema. ENT: Nares patent. No nasal discharge, no septal abnormalities noted. Tympanic membranes are normal and external auditory canals are clear. Oropharynx with no redness, swelling, or masses, exudates, or evidence of obstruction, uvula midline. Mucous membranes moist. Neck: Trachea midline, no thyromegaly or masses palpated, and no cervical lymphadenopathy. Supple, full range of motion without nuchal rigidity, or vertebral point tenderness. No Meningismus. Chest/axilla: Normal chest wall appearance and motion. Nontender with no deformity. No lesions are appreciated. Cardiovascular: Regular rate and rhythm with a normal S1 and S2. No gallops, murmurs, or rubs. Normal PMI, no JVD. No pulse deficits. Respiratory: Lungs have equal breath sounds bilaterally, clear to auscultation and percussion. No rales, rhonchi or wheezes noted. No increased work of breathing, no retractions or nasal flaring. Back: No spinal tenderness. No costovertebral tenderness. Full range of motion. Female : Normal external genitalia. Skin: Warm, dry with normal turgor. Normal color with no rashes, no lesions, and no evidence of cellulitis. MS/ Extremity: Pulses equal, no cyanosis. Neurovascular intact. Full, normal range of motion. Neuro: Awake and alert, GCS 15, oriented to person, place, time, and situation. Cranial nerves II-XII grossly intact. Motor strength 5/5 in all extremities. Sensory grossly intact. Cerebellar exam normal. Normal gait. Psych: Awake, alert, with orientation to person, place and time. Behavior, mood, and affect are within normal limits. 20:53 ECG was reviewed by the Attending Physician. 20:53 Abdomen/GI: Inspection: abdomen appears normal, Bowel sounds: normal, Palpation: mild abdominal tenderness, in the left lower quadrant, Liver: no appreciated palpable abnormalities, Hernia: not appreciated. Vital Signs: 20:10 BP 181 / 81 RA Sitting (auto/reg); Pulse 71; Resp 18; Temp 98.4; Pulse Ox 99% on R/A; wg Weight 59.87 kg; Height 5 ft. 2 in. (157.48 cm); Pain 6/10; 23:50 BP 150 / 68; Pulse 70; Resp 18; Pulse Ox 98% on R/A; ea 20:10 Body Mass Index 24.14 (59.87 kg, 157.48 cm) wg MDM: 20:44 Patient medically screened. fazal 20:58 Differential diagnosis: AAA, bowel obstruction, diverticulitis, Irritable bowel fazal syndrome, non-specific abd pain, pancreatitis, Peptic Ulcer Disease, Peritonitis, urinary tract infection. Data reviewed: vital signs, nurses notes, lab test result(s), EKG, radiologic studies, CT scan, plain films. Data interpreted: ekg monitor: rate is 71 beats/min, rhythm is regular, Pulse oximetry: on room air is 99 %. Test interpretation: by ED physician or midlevel provider: ECG, plain radiologic studies. Counseling: I had a detailed discussion with the patient and/or guardian regarding: the historical points, exam findings, and any diagnostic results supporting the discharge/admit diagnosis, lab results, radiology results, the need for outpatient follow up. 05/03 20:20 Order name: CBC with Diff; Complete Time: 21:55 wg 05/03 20:21 Order name: Basic Metabolic Panel; Complete Time: 22:06 wg 05/03 20:21 Order name: Magnesium; Complete Time: 22:06 wg 05/03 20:21 Order name: NT PRO-BNP; Complete Time: 22:06 wg 05/03 20:21 Order name: PT-INR; Complete Time: 22:06 05/03 20:21 Order name: Troponin (emerg Dept Use Only); Complete Time: 22:06 wg 05/03 20:43 Order name: Liver (Hepatic) Function; Complete Time: 22:06 [facility] 05/03 20:43 Order name: Lipase; Complete Time: 22: [facility] 05/03 20:52 Order name: Urine Culture [facility] 05/03 23:23 Order name: Urine Dipstick-Ancillary; Complete Time: 23:28 [facility] 05/03 20:20 Order name: IV Saline Lock; Complete Time: 20:51 05/03 20:20 Order name: Labs collected and sent; Complete Time: : 05/03 20:20 Order name: EKG - Nurse/Tech; Complete Time: :51 05/03 20:21 Order name: XRAY Chest (1 view); Complete Time: : 05/03 20:21 Order name: EKG; Complete Time: 20: 05/03 20:21 Order name: Cardiac monitoring; Complete Time: 20:51 05/03 20:21 Order name: O2 Per Protocol; Complete Time: : 05/03 20:21 Order name: O2 Sat Monitoring; Complete Time: : 05/03 20:51 Order name: CT Abd/Pelvis - IV Contrast Only [facility] EC:53 Rate is 64 beats/min. Rhythm is regular. QRS [place] is Normal. ME interval is normal. QRS fazal interval is normal. QT interval is normal. No Q waves. T waves are Normal. No ST changes noted. Clinical impression: NSR w/ Non-specific ST/T Changes, 1st degree heart block, and No evidence of ischemia. Interpreted by me. Reviewed by me. Administered Medications: 21:00 Drug: NS 0.9% 1000 ml Route: IV; Rate: 125 ml/hr; Site: left antecubital; ea 23:54 Follow up: IV Status: Completed infusion ea 21:00 Drug: NS 0.9% 500 ml Route: IV; Rate: bolus; Site: left antecubital; ea 23:54 Follow up: Response: No adverse reaction; IV Status: Completed infusion; IV Intake: ea 500ml 21:24 Drug: morphine 2 mg Route: IVP; Site: left antecubital; ea 23:54 Follow up: Response: No adverse reaction; Pain is decreased ea 21:24 Drug: Zofran (Ondansetron) 4 mg Route: IVP; Site: left antecubital; ea 23:54 Follow up: Response: No adverse reaction ea 23:37 Drug: Rocephin (cefTRIAXone) 1 grams Route: IV; Rate: per protocol; Site: left ea antecubital; 23:54 Follow up: IV Status: Completed infusion ea 23:53 Drug: Bactrim (trimethoprim-sulfamethoxazole) (160 mg-800 mg (DS) 1 tablet Route: PO; ea 23:54 Follow up: Response: Medication administered at discharge. ea Disposition Summary: 05/03/21 23:38 Discharge Ordered Location: Home(05/03/21 23:38) fazal Problem: new(05/03/21 23:38) fazal Symptoms: have improved(05/03/21 23:38) fazal Condition: Stable(05/03/21 23:38) fazal Diagnosis - UTI/ Urinary tract infection, site not specified(05/03/21 23:38) fazal - Abdominal tenderness(05/03/21 23:38) fazal - Dysuria fazal Followup: fazal - With: Liliana Shirley MD - When: 1 - 2 days - Reason: Recheck today's complaints, Continuance of care, Re-evaluation by your physician Discharge Instructions: - Discharge Summary Sheet fazal - Dysuria fazal - Urinary Tract Infection, Adult fazal - Urinary Tract Infection, Adult, [id number] fazal Forms: - Medication Reconciliation Form fazal - Thank You Letter fazal - Antibiotic Education fazal - Prescription Opioid Use fazal Prescriptions: - Bactrim DS 800-160 mg Oral Tablet - take 1 tablet by ORAL route every 12 hours for 7 days; 14 tablet; Refills: 0, fazal Product Selection Permitted - Macrobid 100 mg Oral Capsule - take 1 capsule by ORAL route every 12 hours for 5 days; 10 capsule; Refills: 0, fazal Product Selection Permitted Signatures: Dispatcher [employer] Bishop Canchola MD MD cha Attema, Lee, SECURITY SME-C SECURITY SME-Cla1 Estella Lewis RN RN ea Gamba, Liam, RN wg Corrections: (The following items were deleted from the chart) 20:43 20:21 BASIC METABOLIC PANEL+C.LAB.BRZ ordered. EDMS EDMS 20:43 20:21 HEPATIC FUNCTION+C.LAB.BRZ ordered. EDMS EDMS 20:43 20:21 LIPASE+C.LAB.BRZ ordered. EDMS EDMS 23:22 23:16 Jose Francisco Infante fazal la1 23:23 23:16 Inpatient Admission fazal fazal 23:23 23:16 Telemetry/MedSurg (Inpatient) fazal fazal 23:23 23:16 fazal fazal 23:36 23:16 Stable fazal fazal 23:36 23:16 new fazal fazal 23:36 23:16 have improved fazal fazal 23:36 23:16 Standard fazal fazal 23:36 23:16 Pyelonephritis acute fazal fazal 23:36 23:16 Abdominal tenderness fazal fazal 23:36 23:16 UTI/ Urinary tract infection, site not specified fazal fazal 23:36 23:22 Osbaldo Gongora la1 fazal 23:36 23:23 Observation fazal fazal 23:36 23:23 Telemetry/MedSurg (observation) fazal fazal 23:36 23:23 fazal fazal 23:37 23:17 Misc. Order ordered. [facility]
--- NOTE | 2021-05-03 23:16 | ER ---
Nurse's Notes [facility] Name: Melani Jimenez Age: 85 yrs Sex: Female : 1935 Arrival Date: 05/03/2021 Time: 19:35 Bed 4 Private MD: Liliana Shirley Diagnosis: UTI/ Urinary tract infection, site not specified;Abdominal tenderness;Dysuria Presentation: 05/03 20:10 Chief complaint: Patient states: Pt states she has increased pain on her light side wg which has been in her hip areas for months but over the past couple days had radiated into her LLQ. Pt denies N/V/D, pt denies SOB, CP or dizziness. Normal bowel habits. Coronavirus screen: Vaccine status: Patient reports receiving the 2nd dose of the covid vaccine. Date October 17, 2020 At this time, the client does not indicate any symptoms associated with coronavirus-19. Ebola Screen: Patient negative for fever greater than or equal to 101.5 degrees Fahrenheit, and additional compatible Ebola Virus Disease symptoms Patient denies exposure to infectious person. Patient denies travel to an Ebola-affected area in the 21 days before illness onset. No symptoms or risks identified at this time. Initial Sepsis Screen: Does the patient meet any 2 criteria? No. Patient's initial sepsis screen is negative. Does the patient have a suspected source of infection? No. Patient's initial sepsis screen is negative. Risk Assessment: Do you want to hurt yourself or someone else? Patient reports no desire to harm self or others. Onset of symptoms was May 01, 2021. 20:10 Method Of Arrival: Ambulatory 20:10 Acuity: DUC 3 wg Triage Assessment: 20:14 General: Appears uncomfortable, well groomed, well nourished, Behavior is cooperative, wg appropriate for age, anxious. Pain: Complains of pain in abdomen- LLQ. EENT: No deficits noted. Neuro: No deficits noted. Cardiovascular: No deficits noted. Respiratory: No deficits noted. GI: Reports lower abdominal pain, normal bowel habits. : No deficits noted. Derm: No deficits noted. Musculoskeletal: No deficits noted. Historical: - Allergies: 20:14 Codeine; wg 20:14 Ciprofloxacin; wg 20:14 annaprox; wg 20:14 Ampicillin; wg 20:14 Doryx; wg 20:14 Lisinopril; wg 20:14 tramadol; wg 20:14 relafen; wg 20:14 Bextra; wg 20:14 Deltasone; wg 20:14 Hemocyte-F; wg - Home Meds: 20:14 aspirin 81 mg oral tab [Active]; Melatonin Oral [Active]; wg - Immunization history:: Adult Immunizations up to date. - Social history:: Smoking status: Patient denies any tobacco usage or history of. - Family history:: not pertinent. Screenin:49 Abuse screen: Denies threats or abuse. Nutritional screening: No deficits noted. ea Tuberculosis screening: No symptoms or risk factors identified. Fall Risk IV access (20 points). Vital Signs: 20:10 BP 181 / 81 RA Sitting (auto/reg); Pulse 71; Resp 18; Temp 98.4; Pulse Ox 99% on R/A; wg Weight 59.87 kg; Height 5 ft. 2 in. (157.48 cm); Pain 6/10; 23:50 BP 150 / 68; Pulse 70; Resp 18; Pulse Ox 98% on R/A; ea 20:10 Body Mass Index 24.14 (59.87 kg, 157.48 cm) wg ED Course: 19:35 Patient arrived in ED. mr 19:35 Liliana Shirley MD is Private Physician. mr 20:14 Triage completed. wg 20:14 Arm band placed on right wrist. wg 20:23 Estella Lewis, MC is Primary Nurse. ea 20:30 Inserted saline lock: 20 gauge in left antecubital area, using aseptic technique. Blood ea collected. 20:44 Bishop Rodas MD is Attending Physician. fazal 20:50 XRAY Chest (1 view) In Process Unspecified. EDMS 20:50 Patient has correct armband on for positive identification. Bed in low position. Call ea light in reach. desk monitor on. Pulse ox on. NIBP on. 22:11 CT Abd/Pelvis - IV Contrast Only In Process Unspecified. EDMS 23:15 Jose Francisco Infante MD is Hospitalizing Provider. fazal 23:22 Osbaldo Gongora DO is Hospitalizing Provider. la1 23:37 Liliana Shirley MD is Referral Physician. fazal 23:55 No provider procedures requiring assistance completed. IV discontinued, intact, ea bleeding controlled, No redness/swelling at site. Pressure dressing applied. Administered Medications: 21:00 Drug: NS 0.9% 1000 ml Route: IV; Rate: 125 ml/hr; Site: left antecubital; ea 23:54 Follow up: IV Status: Completed infusion ea 21:00 Drug: NS 0.9% 500 ml Route: IV; Rate: bolus; Site: left antecubital; ea 23:54 Follow up: Response: No adverse reaction; IV Status: Completed infusion; IV Intake: ea 500ml 21:24 Drug: morphine 2 mg Route: IVP; Site: left antecubital; ea 23:54 Follow up: Response: No adverse reaction; Pain is decreased ea 21:24 Drug: Zofran (Ondansetron) 4 mg Route: IVP; Site: left antecubital; ea 23:54 Follow up: Response: No adverse reaction ea 23:37 Drug: Rocephin (cefTRIAXone) 1 grams Route: IV; Rate: per protocol; Site: left ea antecubital; 23:54 Follow up: IV Status: Completed infusion ea 23:53 Drug: Bactrim (trimethoprim-sulfamethoxazole) (160 mg-800 mg (DS) 1 tablet Route: PO; ea 23:54 Follow up: Response: Medication administered at discharge. ea Intake: 23:54 IV: 500ml; Total: 500ml. ea Outcome: 23:16 Decision to Hospitalize by Provider. fazal 23:38 Discharge ordered by . fazal 23:55 Discharged to home ambulatory, with family. ea 23:55 Condition: stable 23:55 Discharge instructions given to patient, Instructed on discharge instructions, follow up and referral plans. medication usage, Demonstrated understanding of instructions, follow-up care, medications, Prescriptions given X 2. 23:56 Patient left the ED. ea Signatures: Dispatcher [employer] EDBishop Howard MD MD cha Rivera, Tonya Diomedes Jones, INSTRUMENTATION SUPERVISOR-C INSTRUMENTATION SUPERVISOR-Cla1 Estella Lewis, Hiram Fan RN, ea, RN wg
[2021-05-03 23:24] LABS: Urine Blood Trace-lysed (Negative); Urine Glucose Negative (Negative); Urine Protein Negative (Negative); Urine Specific Gravity 1.015 (1.005-1.030)
[2021-05-03] MEDS ORDERED: CEFTRIAXONE/SWI 1gm 1 GM/10 ML SYR ONE (23:59)
[2021-05-04] MEDS ORDERED: SMZ./TMP. 800/160 MG TABLET ONE (00:09)
[2021-05-04 00:38] VITALS: BP 181/81; TEMP 98.4; O2SAT 99
--- NOTE | 2021-05-04 11:43 | RAD REPORT ---
EXAM DESCRIPTION: CT - Abdomen Pelvis W Contrast - 05/04/2021 6:36 am CLINICAL HISTORY: 85 years, Female, ABD PAIN COMPARISON: None. TECHNIQUE: Contrast-enhanced images of the abdomen and pelvis were performed utilizing 5 mm slice th ickness at 5 mm interval reconstruction from the lung bases to the ischial tuberosities after the adm inistration of IV contrast. In addition multiplanar reformats in the coronal and sagittal plane were obtained and reviewed. This exam was performed according to our departmental dose-optimization protocol, which includes auto mated exposure control, adjustment of the mA and/or kV according to patient size and/or use of iterat sujey reconstruction technique. FINDINGS: The lung bases demonstrate presence of multiple bilateral pulmonary nodules ranging from f ew millimeters up to the largest one measuring 5 mm. There are calcified granulomas within the right and left lung base. The liver demonstrated presence of several hypodense lesions throughout the right and left hepatic lo be ranging from 0.6 cm up to 2.4 cm subcapsular aspect lateral segment left hepatic lobe on image 18/ 83. The pancreas, spleen and adrenal glands demonstrate to be unremarkable, no focal lesions are noted. T here are splenic granulomas The right kidney demonstrate uptake of contrast media with no evidence for hydronephrosis. The left kidney demonstrate slight decrease perfusion with surrounding perinephric haziness, left hyd ronephrosis and proximal left hydroureter, there is enhancement of the plate the urothelium with surr ounding inflammatory changes along the left ureter, this is best demonstrated on coronal images 49/11 8-51/118. No definitive calculus is identified. No definitive discernible enhancing lesion could be s een. Grossly the unopacified stomach, small bowel and large bowel demonstrate to be within normal honeycutt its. There is no evidence for bowel dilatation/or free air. There is a focal area of caliber narrow ing along the splenic flexure whether this is related to peristalsis/or other process cannot be exclu ded, this is best demonstrated on image -. The urinary bladder demonstrate to be unremarkable. The uterus is absent. The aorta demonstrate a therosclerotic disease. There is no retroperitoneal lymphadenopathy. There is no evidence for ascites . The bone windows demonstrate degenerative changes throughout the lumbar spine. There is degenerativ e spondylolisthesis grade 1 at L5/S1. Surgical clips are seen within the left inguinal area correspon ding to previous repair. IMPRESSION: Left hydronephrosis and proximal left hydroureter with enhancement of the urothelium and surrounding inflammatory changes along the left ureter. No definitive calculus is identified. No def initive discernible enhancing lesion could be seen. Findings suggest most likely ureteritis/pyeloneph ritis Multiple hypodense lesions throughout the right and left hepatic lobe ranging from 0.6 cm up to 2.4, suspicious for metastatic disease and/or primary neoplasm. Multiple bilateral pulmonary nodules ranging from few millimeters up to the largest one measuring 5 m m. Multiple pulmonary nodules. Findings could be related to granulomatous disease versus metastatic d isease cannot be excluded. Follow-up with CT scan of the chest could be of assistance Focal area of caliber narrowing along the splenic flexure whether this is related to peristalsis/or o ther process cannot be excluded. Degenerative changes throughout the lumbar spine with degenerative spondylolisthesis grade 1 at L5/S1 . Electronically signed by: Alonzo Fairhcild MD 05/03/2021 10:53 PM CDT Due to temporary technical issues with the PACS/Fluency reporting system, reports are being signed by the in house radiologist without review as a courtesy to ensure prompt reporting. The interpreting r adiologist is fully responsible for the content of the report.
== END 2021-05-03 23:56 | disposition home or self-care (01) ==
LOC: ER 19:30
DX: N39.0 Urinary tract infection, site not specified (principal); R30.0 Dysuria; Z79.82 Long term (current) use of aspirin; Z88.1 Allergy status to other antibiotic agents; Z88.3 Allergy status to other anti-infective agents; Z88.5 Allergy status to narcotic agent; Z88.8 Allergy status to other drugs, medicaments and biological substances
CPT/HCPCS: 36415; 71045; 74177; 80048; 80076; 81003; 83690; 83735; 83880; 84484; 85025; 85610; 87086; 87088; 93005; 96361; 96365; 96375; 99284; J0696; J2270; J2405; J7030; J7040; Q9967

== ENCOUNTER 2021-05-05 19:49 | Inpatient (IN) | payer OTHER ==
[2021-05-05] MEDS ORDERED: NA CHLORIDE 0.9% 500 ML ONE (21:31)
[2021-05-05] MEDS ORDERED: ONDANSETRON 4 MG/2 ML VIAL ONE (21:31)
[2021-05-05 21:59] LABS: Urine Blood 1+ (Negative); Urine Glucose Negative (Negative); Urine Protein Negative (Negative); Urine Specific Gravity 1.015 (1.005-1.030)
[2021-05-05 22:23] LABS: Urine Bacteria <20 /HPF (<20)
[2021-05-05] MEDS ORDERED: FAMOTIDINE 20 MG/2 ML VIAL IV ONE (22:30)
[2021-05-05 22:44] LABS: Albumin 3.6 g/dL (3.4-5.0); Bilirubin Direct 0.2 mg/dL (0-0.2); Bilirubin Total 0.7 mg/dL (0.2-1.0); Protein, Total 7.9 g/dL (6.4-8.2)
[2021-05-05 22:45] LABS: Potassium 4.5 mmol/L (3.5-5.1)
[2021-05-05 23:19] LABS: Absolute Lymphocytes (CBC) 1.3 K/uL (0.7-4.9); Basophils % 0.4 % (0-1.3); Hematocrit 33.3 % (36.0-45.0); MPV 7.8 fL (7.6-11.3); RBC Red Blood Cell Count 3.73 M/uL (3.86-4.86)
--- NOTE | 2021-05-06 00:10 | ER ---
Nurse's Notes [facility] Name: Melani Jimenez Age: 85 yrs Sex: Female : 1935 Arrival Date: 05/05/2021 Time: 19:58 Bed 28 Private MD: Diagnosis: Pyelonephritis acute;Nausea with vomiting, unspecified Presentation: 05/05 20:03 Chief complaint: Patient states: nausea and vomiting since Saturday, was here em Saturday and given Bactrim and Macrobid for UTI, not feeling any better, denies fever. Coronavirus screen: Vaccine status: Patient reports receiving the 2nd dose of the covid vaccine. Ebola Screen: Patient negative for fever greater than or equal to 101.5 degrees Fahrenheit, and additional compatible Ebola Virus Disease symptoms Patient denies exposure to infectious person. Patient denies travel to an Ebola-affected area in the 21 days before illness onset. No symptoms or risks identified at this time. Initial Sepsis Screen: Does the patient meet any 2 criteria? No. Patient's initial sepsis screen is negative. Does the patient have a suspected source of infection? No. Patient's initial sepsis screen is negative. Risk Assessment: Do you want to hurt yourself or someone else? Patient reports no desire to harm self or others. Onset of symptoms was May 05, 2021. 20:03 Method Of Arrival: Wheelchair em 20:03 Acuity: DUC 3 em Triage Assessment: 20:30 General: Appears in no apparent distress. well groomed, well developed, well nourished, kh1 Behavior is calm, cooperative, present.. Pain: Complains of pain in abdomen Pain at worst was 5 out of 10 on a pain scale. Quality of pain is described as c/o intermittent left lower abdominal pain "5" on pain scale; denies pain \\T\\ present time; reports decreased appetite; reports difficulty sleeping x2-3 days. Pain began 2-3 days ago. GI: Reports lower abdominal pain, Pain is 5 out of 10 on a pain scale. Intermittent pain; denies pain \\T\\ present time of left lower abdomen. Historical: - Allergies: 20:05 Ampicillin; em 20:05 annaprox; em 20:05 Bextra; em 20:05 Ciprofloxacin; em 20:05 Codeine; em 20:05 Deltasone; em 20:05 Doryx; em 20:05 Hemocyte-F; em 20:05 Lisinopril; em 20:05 relafen; em 20:05 tramadol; em - PMHx: 20:05 Atrial Fib; High Cholesterol; Degenerative disc disease; Hypothyroidism; RLS; em - Immunization history:: Adult Immunizations up to date. - Social history:: Smoking status: Patient denies any tobacco usage or history of. Screenin:30 Abuse screen: Denies threats or abuse. Nutritional screening: Reports decreased kh1 appetite for several days; c/o left lower intermittent abdominal pain "5" on pain scale; denies pain \\T\\ present; reports being on antibiotics.. Fall Risk None identified. 20:30 Tuberculosis screening: No symptoms or risk factors identified. kh1 Assessment: 20:30 GI: Abdomen is non-distended, Abdomen nondistended/nontender/soft with hyperactive BS's kh1 x4 quads. Last BM was May 02, 2021. 22:19 Reassessment: Patient appears in no apparent distress at this time. CT of pelvis/abd. cc4 completed per technical support associate.; NADN.. 05/06 01:30 Reassessment: Patient appears in no apparent distress at this time. Patient states cc4 feeling better. IV Rocephin 1 g hung \\T\\ infusing with no difficulty left AC; assisted into bed for ER hold (admission); voices no complaints.. 15:40 Reassessment: Gave report to [facility] Ortega. Information from the SBAR was given. All rb3 questions asked and answered. Vital Signs: 05/05 20:03 BP 145 / 79; Pulse 82; Resp 18; Temp 98.0; Pulse Ox 99% on R/A; Weight 59.87 kg; em 20:30 BP 148 / 69; Pulse 72; Resp 24; Temp 98.7; Pulse Ox 100% on R/A; kh1 22:50 BP 145 / 91; Pulse 69; Resp 20; Temp 98.6(O); Pulse Ox 98% on R/A; kh1 05/06 01:30 BP 153 / 95; Pulse 79; Resp 18; Temp 98; Pulse Ox 100% on R/A; cc4 ED Course: 05/05 19:58 Patient arrived in ED. cf2 20:05 Triage completed. em 20:05 Arm band placed on. em 20:30 Placed in gown. Bed in low position. Side rails up X2. Adult w/ patient. kh1 20:30 No provider procedures requiring assistance completed. 1 20:37 Nas Sosa MD is Attending Physician. 7 21:04 Gina Berg is Primary Nurse. kh1 22:04 Urine Culture Sent. kh1 22:04 Urine Microscopic Only Sent. kh1 22:19 CT Abd/Pelvis - Without Contrast In Process Unspecified. EDMS 23:03 Inserted saline lock: 22 gauge in left antecubital area, using aseptic technique. [facility] 05/06 00:08 Jose Francisco Infante MD is Hospitalizing Provider. [facility] 15:40 Patient admitted, IV remains in place. rb3 Administered Medications: 05/05 21:40 Drug: NS 0.9% 500 ml Route: IV; Rate: bolus; Site: left upper arm; [facility] 21:40 Drug: Zofran (Ondansetron) 4 mg Route: IVP; Site: left upper arm; [facility] 05/06 02:38 Follow up: Response: No adverse reaction; Marked relief of symptoms cc4 05/05 22:08 Drug: Pepcid (famotidine) 20 mg Route: IVP; Site: left upper arm; [facility] 05/06 02:37 Follow up: Response: No adverse reaction; Marked relief of symptoms cc4 00:06 CANCELLED (Other Intervention Used): Rocephin (cefTRIAXone) 1 grams IV at per protocol la1 once; Given slow IV push per pharmacy instructions 01:27 CANCELLED (Physician Discretion): Cefepime 1 grams IVPB at 200 ml/hr once over 30 mins; bb (mix in NS 100 mL) 01:28 Drug: Rocephin (cefTRIAXone) 1 grams Route: IV; Rate: calculated rate; Site: left cc4 antecubital; 02:29 Follow up: Response: No adverse reaction; IV Status: Completed infusion cc4 Outcome: 05/05 20:30 Condition: stable [facility] 05/06 00:08 Decision to Hospitalize by Provider. [facility] 15:40 Admitted to Med/surg accompanied by tech, via wheelchair, room 232, with chart, Report rb3 called to [facility] Ortega 15:40 Condition: stable 15:40 Instructed on the need for admit. 15:53 Patient left the ED. rb3 Signatures: Dispatcher [employer] Jorge Giraldo, RN RN Corazon Lundberg 2 Nas Sosa MD MD 7 Ellen Chávez RN RN rb3 Gina Berg 1 Lissett Butterfield 4 Brittany Mccartney RN Diomedes Jones [facility] Corrections: (The following items were deleted from the chart) 05/05 22:50 22:43 General: Appears 1 [facility]
--- NOTE | 2021-05-06 00:10 | EDPHYS ---
Physician Documentation [facility] Name: Melani Jimenez Age: 85 yrs Sex: Female : 1935 Arrival Date: 05/05/2021 Time: 19:58 Bed 28 Private MD: ED Physician Nas Sosa HPI: 05/05 20:55 This 85 yrs old Female presents to ER via Wheelchair with complaints of mh7 Nausea/Vomiting, Decreased Appetite. 20:55 The patient presents to the emergency department with nausea, that is moderate, mh7 vomiting, that is intermittent, described as clear fluid, abdominal pain, of the left lower quadrant, described as intermittent, vague,\\E\\ waxing and waning, and does not radiate. Onset: The symptoms/episode began/occurred 2 day(s) ago. Possible causes: antibiotics, Bactrim and Macrobid. The symptoms are aggravated by nothing. The symptoms are alleviated by nothing. Associated signs and symptoms: Pertinent positives: abdominal pain, anorexia, nausea, vomiting, Pertinent negatives: belching, constipation, diarrhea, dysuria, fever, flatulence, GI bleeding, hematuria. Severity of symptoms: At their worst the symptoms were moderate last night, in the emergency department the symptoms are unchanged. The patient has been recently seen at the [facility] Emergency Department, this week. Historical: - Allergies: 20:05 Ampicillin; em 20:05 annaprox; em 20:05 Bextra; em 20:05 Ciprofloxacin; em 20:05 Codeine; em 20:05 Deltasone; em 20:05 Doryx; em 20:05 Hemocyte-F; em 20:05 Lisinopril; em 20:05 relafen; em 20:05 tramadol; em - PMHx: 20:05 Atrial Fib; High Cholesterol; Degenerative disc disease; Hypothyroidism; RLS; em - Immunization history:: Adult Immunizations up to date. - Social history:: Smoking status: Patient denies any tobacco usage or history of. ROS: 20:55 Constitutional: Negative for fever, chills, and weight loss, Eyes: Negative for injury, mh7 pain, redness, and discharge, ENT: Negative for injury, pain, and discharge, Neck: Negative for injury, pain, and swelling, Cardiovascular: Negative for chest pain, palpitations, and edema, Respiratory: Negative for shortness of breath, cough, wheezing, and pleuritic chest pain, Back: Negative for injury and pain, : Negative for injury, bleeding, discharge, and swelling, MS/Extremity: Negative for injury and deformity, Skin: Negative for injury, rash, and discoloration, Neuro: Negative for headache, weakness, numbness, tingling, and seizure, Psych: Negative for depression, anxiety, suicide ideation, homicidal ideation, and hallucinations, Allergy/Immunology: Negative for hives, rash, and allergies, Endocrine: Negative for neck swelling, polydipsia, polyuria, polyphagia, and marked weight changes, Hematologic/Lymphatic: Negative for swollen nodes, abnormal bleeding, and unusual bruising. Exam: 20:55 Constitutional: This is a well developed, well nourished patient who is awake, alert, mh7 and in no acute distress. Head/Face: Normocephalic, atraumatic. Eyes: Pupils equal round and reactive to light, extra-ocular motions intact. Lids and lashes normal. Conjunctiva and sclera are non-icteric and not injected. Cornea within normal limits. Periorbital areas with no swelling, redness, or edema. Neck: Trachea midline, no thyromegaly or masses palpated, and no cervical lymphadenopathy. Supple, full range of motion without nuchal rigidity, or vertebral point tenderness. No Meningismus. Chest/axilla: Normal chest wall appearance and motion. Nontender with no deformity. No lesions are appreciated. Cardiovascular: Regular rate and rhythm with a normal S1 and S2. No gallops, murmurs, or rubs. Normal PMI, no JVD. No pulse deficits. Respiratory: Lungs have equal breath sounds bilaterally, clear to auscultation and percussion. No rales, rhonchi or wheezes noted. No increased work of breathing, no retractions or nasal flaring. 20:55 Back: No spinal tenderness. No costovertebral tenderness. Full range of motion. Skin: Warm, dry with normal turgor. Normal color with no rashes, no lesions, and no evidence of cellulitis. MS/ Extremity: Pulses equal, no cyanosis. Neurovascular intact. Full, normal range of motion. Neuro: Awake and alert, GCS 15, oriented to person, place, time, and situation. Cranial nerves II-XII grossly intact. Motor strength 5/5 in all extremities. Sensory grossly intact. Cerebellar exam normal. Normal gait. 20:55 Abdomen/GI: Inspection: abdomen appears normal, Bowel sounds: normal, in all quadrants, Palpation: moderate abdominal tenderness, in the left lower quadrant, mass, is not appreciated, rebound tenderness, is not appreciated, voluntary guarding, is not appreciated, involuntary guarding, is not appreciated, no appreciated organomegaly, Rectal exam: the exam is deferred, because of patient request, Indicators: McBurney's point is not tender, Baxter's sign is negative, Rovsing's sign is negative, Obturator sign is negative, Psoas sign is negative, Liver: no appreciated palpable abnormalities, Hernia: not appreciated. Vital Signs: 20:03 BP 145 / 79; Pulse 82; Resp 18; Temp 98.0; Pulse Ox 99% on R/A; Weight 59.87 kg; em 20:30 BP 148 / 69; Pulse 72; Resp 24; Temp 98.7; Pulse Ox 100% on R/A; kh1 22:50 BP 145 / 91; Pulse 69; Resp 20; Temp 98.6(O); Pulse Ox 98% on R/A; kh1 05/06 01:30 BP 153 / 95; Pulse 79; Resp 18; Temp 98; Pulse Ox 100% on R/A; cc4 MDM: 00:07 Differential diagnosis: Nonspecific abd pain, diverticulitis, viral gastroenteritis, mh7 gastroenteritis, Pyelonephritis. Data reviewed: vital signs, nurses notes, old medical records, lab test result(s), CBC, electrolytes, urinalysis, radiologic studies, CT scan. Data interpreted: Pulse oximetry: on room air is 98 %. Interpretation: normal. Counseling: I had a detailed discussion with the patient and/or guardian regarding: the historical points, exam findings, and any diagnostic results supporting the discharge/admit diagnosis, the presence of at least one elevated blood pressure reading (>120/80) during this emergency department visit, lab results, radiology results, the need for further work-up and treatment in the hospital. Response to treatment: the patient's symptoms have markedly improved after treatment. 00:08 Patient medically screened. [facility] 05/05 21:03 Order name: Basic Metabolic Panel; Complete Time: 23:11 [facility] 05/05 21:03 Order name: CBC with Diff; Complete Time: 23:39 [facility] 05/05 21:03 Order name: Hepatic Function; Complete Time: 23:20 [facility] 05/05 21:03 Order name: Lipase; Complete Time: 23:20 [facility] 05/05 21:03 Order name: Urine Microscopic Only; Complete Time: 22:29 [facility] 05/05 21:03 Order name: Urine Culture [facility] 05/05 21:58 Order name: Urine Dipstick-Ancillary; Complete Time: 22:29 [facility] 05/06 00:06 Order name: Blood Culture Adult (2) mo1 05/06 06:21 Order name: COVID-19 : Document "Date of Symptom Onset" if Symptomatic. eb 05/06 06:46 Order name: CORONAVIRUS [facility] 05/06 07:23 Order name: Urinalysis [facility] 05/06 07:43 Order name: Basic Metabolic Panel [facility] 05/06 07:43 Order name: C-Reactive Protein [facility] 05/06 07:43 Order name: Magnesium [facility] 05/05 21:03 Order name: IV Saline Lock; Complete Time: 22:04 [facility] 05/05 21:03 Order name: Labs collected and sent; Complete Time: 22:04 [facility] 05/05 21:03 Order name: Urine Dipstick-Ancillary (obtain specimen); Complete Time: 22:04 [facility] 05/05 21:37 Order name: CT Abd/Pelvis - Without Contrast [facility] 05/06 07:49 Order name: CBC with Automated Diff [facility] 05/06 07:51 Order name: SARS-COV-2 RT PCR [facility] 05/06 07:54 Order name: Urine Microscopic Only [facility] 05/06 09:05 Order name: Procalcitonin [facility] 05/06 09:33 Order name: US EDID Administered Medications: 05/05 21:40 Drug: NS 0.9% 500 ml Route: IV; Rate: bolus; Site: left upper arm; [facility] 21:40 Drug: Zofran (Ondansetron) 4 mg Route: IVP; Site: left upper arm; [facility] 05/06 02:38 Follow up: Response: No adverse reaction; Marked relief of symptoms cc4 05/05 22:08 Drug: Pepcid (famotidine) 20 mg Route: IVP; Site: left upper arm; [facility] 05/06 02:37 Follow up: Response: No adverse reaction; Marked relief of symptoms cc4 00:06 CANCELLED (Other Intervention Used): Rocephin (cefTRIAXone) 1 grams IV at per protocol la1 once; Given slow IV push per pharmacy instructions 01:27 CANCELLED (Physician Discretion): Cefepime 1 grams IVPB at 200 ml/hr once over 30 mins; bb (mix in NS 100 mL) 01:28 Drug: Rocephin (cefTRIAXone) 1 grams Route: IV; Rate: calculated rate; Site: left cc4 antecubital; 02:29 Follow up: Response: No adverse reaction; IV Status: Completed infusion cc4 Disposition Summary: 05/06/21 00:08 Hospitalization Ordered Hospitalization Status: Inpatient Admission [facility] Provider: Jose Francisco Infante Roberta Condition: Stable [facility] Problem: new [facility] Symptoms: have improved [facility] Bed/Room Type: Standard [facility] Location: Telemetry/MedSurg (Inpatient)(05/06/21 15:18) Room Assignment: [facility](05/06/21 15:18) Diagnosis - Pyelonephritis acute [facility] - Nausea with vomiting, unspecified [facility] Forms: - Medication Reconciliation Form [facility] - SBAR form [facility] Signatures: Dispatcher [employer] EDJorge Loza RN RN em Ballard, Brenda, RN RN bb Attema, Lee, CLUBHOUSE ATTENDANT-C CLUBHOUSE ATTENDANT-Milly Mosqueda RN RN cg Botello, Elizabeth eb Holmes, Maurice, MD MD [facility] Gina Berg [facility] Lissett Butterfield [facility] Corrections: (The following items were deleted from the chart) 00:06 05/05 23:39 Rocephin (cefTRIAXone) 1 grams IV at per protocol once; Given slow IV push la1 per pharmacy instructions ordered. mh7 05/06 00:22 00:08 Telemetry/MedSurg (Inpatient) [facility] cg 00:22 00:08 [facility] cg 01:27 00:06 Cefepime 1 grams IVPB at 200 ml/hr once over 30 mins; (mix in NS 100 mL) ordered. bb la1 15:18 00:22 [facility] ER HOLD cg eb 15:18 00:22 ERHOLD- cg eb
--- NOTE | 2021-05-06 00:22 | P.HP ---
Certification for Inpatient Patient admitted to: Inpatient With expected LOS: >2 Midnights Patient will require the following post-hospital care: None Practitioner: I am a practitioner with admitting privileges, knowledge of patient current condition, hospital course, and medical plan of care. Services: Services provided to patient in accordance with Admission requirements found in Title 42 Section 412.3 of the Code of Federal Regulations <Diomedes Jones - Last Filed: 05/06/21 00:16> Patient History Date of Service: 05/06/21 Primary Care Provider: Dr. Shirley Reason for admission: Pyelonephritis History of Present Illness: 85-year-old female with history of atrial fibrillation, hypertension, hypothyroidism presents emerged from and for left-sided flank pain. Patient was here 3 days prior and had findings consistent with an early/possible pyelonephritis on CT scan was treated with Macrobid/Bactrim but has had worsening of symptoms since then. Patient with left flank pain, vomiting x2 this evening and feeling unwell. Vital signs are stable, patient does not appear septic this time labs significant for white blood cell count 13.1, this is increased from 8.82 days ago sodium 134 GFR 47 glucose 118 AST 53 urinalysis less than 20 bacteria nitrite negative leukoesterase negative, CT abdomen pelvis without contrast demonstrates dilated duplicated left collecting system with hyperdense fluid which may represent infection or blood product left renal cortical hypodensities may represent residual contrast from recent contrast- enhanced exam and less likely small intraparenchymal hematomas or intrarenal infection, fat stranding surrounding the left kidney and ureters is suggestive of infection. Bibasilar pulmonary nodules noted up to 9 mm findings concerning for metastatic disease left pleural thickening and small left pleural effusion could represent small empyema or malignant effusion, also hepatic metastasis noted. Patient seen and examined patient with no abdominal tenderness or CVA tenderness on exam, patient not tachycardic or hypotensive. Patient started on cefepime in the emergency department, blood cultures ordered will admit for further evaluation and management of left-sided pyelonephritis. - Past Medical/Surgical History -: Atrial fibrillation not on chronic anticoagulation therapy -: Hypertension -: Hypothyroidism -: Hyperlipidemia -: Cholecystectomy -: Hysterectomy Psychosocial/ Personal History: Retired lives at home with - Family History Father -: Heart disease Brother -: Heart disease - Social History Smoking Status: Never smoker Alcohol use: No CD- Drugs: No Caffeine use: No Place of Residence: Home <Diomedes Jones - Last Filed: 05/06/21 00:16> Date of Service: 05/06/21 <Jose Francisco Infante - Last Filed: 05/06/21 15:41> Allergies ampicillin Allergy (Verified 06/23/18 10:48) Unknown ciprofloxacin Allergy (Verified 06/23/18 10:48) Unknown codeine Allergy (Verified 06/23/18 10:48) Unknown cyanocobalamin (vitamin B12) [From Hemocyte-F] Allergy (Verified 06/23/18 10:48) Unknown doxycycline [From Doryx] Allergy (Verified 06/23/18 10:48) Unknown ferrous fumarate [From Hemocyte-F] Allergy (Verified 06/23/18 10:48) Unknown folic acid [From Hemocyte-F] Allergy (Verified 06/23/18 10:48) Unknown iron [From Hemocyte-F] Allergy (Verified 06/23/18 10:48) Unknown lisinopril Allergy (Verified 06/23/18 10:48) Unknown nabumetone [From Relafen] Allergy (Verified 06/23/18 10:48) Unknown prednisone [From Deltasone] Allergy (Verified 06/23/18 10:48) Unknown tramadol Allergy (Verified 06/23/18 10:48) Unknown valdecoxib [From Bextra] Allergy (Verified 06/23/18 10:48) Unknown mirabegron [From Myrbetriq] Adverse Reaction (Verified 06/23/18 10:48) afib annaprox Allergy (Uncoded 06/23/18 10:48) Unknown Home Medications: Acetaminophen [Tylenol] 325 mg PO DAILY 06/18/18 Aspirin [Aspirin EC 81 MG] 81 mg PO DAILY 06/18/18 Atorvastatin Calcium [Lipitor] 40 mg PO BEDTIME 06/18/18 Biotin 1,000 mcg PO DAILY 06/18/18 Cholecalciferol (Vitamin D3) [Vitamin D3] 1,000 unit PO DAILY 06/18/18 Cyclosporine [Restasis] 1 drop EACH EYE BID 06/18/18 Fenofibrate [Tricor] 48 mg PO DAILY 06/18/18 Gabapentin 300 mg PO BEDTIME 06/18/18 Levothyroxine [Synthroid] 75 mcg PO [id number] 06/18/18 Loteprednol Etabonate [Lotemax] 1 drop EACH EYE BID 06/18/18 Methylcellulose [Citrucel] 250 mg PO DAILY 06/18/18 Multivitamin [Multivitamins] 1 each PO DAILY 06/18/18 Mv-Min/FA/Vit K/Lycop/Lut/Zeax [Ocuvite Eye + Multi Tablet] 1 each PO DAILY 06/18/18 Sotalol HCl [Sotalol] 120 mg PO BID 06/18/18 Turmeric Root Extract [Turmeric] 500 mg PO DAILY 06/18/18 Review of Systems 10-point ROS is otherwise unremarkable General: Weakness, Malaise Gastrointestinal: Nausea, Vomiting, Other (Flank pain) <Diomedes Jones - Last Filed: 05/06/21 00:16> Physical Examination - Physical Exam General: Alert, In no apparent distress, Oriented x3 HEENT: Atraumatic, PERRLA, EOMI Neck: Supple, 2+ carotid pulse no bruit, No LAD Respiratory: Clear to auscultation bilaterally, Normal air movement Cardiovascular: Normal S1 S2, Irregular heart rate/rhythm (A. fib rate controlled) Gastrointestinal: Normal bowel sounds, No tenderness Musculoskeletal: No tenderness Integumentary: No rashes Neurological: Normal speech, Normal strength at 5/5 x4 extr, Normal tone, Normal affect Lymphatics: No axilla or inguinal lymphadenopathy - Studies Laboratory Data (last 24 hrs) 05/05/21 23:03: WBC 13.10 H D, Hgb 11.2 L, Hct 33.3 L, Plt Count 241 D 05/05/21 21:40: Sodium 134 L, Potassium 4.5, BUN 16, Creatinine 1.10, Glucose 118 H, Total Bilirubin 0.7, AST 53 H, ALT 34, Alkaline Phosphatase 65, Lipase 143 <Diomedes Jones - Last Filed: 05/06/21 00:16> - Studies Laboratory Data (last 24 hrs) 05/05/21 23:03: WBC 13.10 H D, Hgb 11.2 L, Hct 33.3 L, Plt Count 241 D 05/05/21 21:40: Sodium 134 L, Potassium 4.5, BUN 16, Creatinine 1.10, Glucose 118 H, Total Bilirubin 0.7, AST 53 H, ALT 34, Alkaline Phosphatase 65, Lipase 143 <Jose Francisco Infante - Last Filed: 05/06/21 15:41> Assessment and Plan - Plan Assessment: Acute left-sided pyelonephritis Incidental findings of bilateral pulmonary nodules measuring up to 9 mm, left pleural thickening with small left pleural effusion, multiple hepatic hypodensities suggestive of hepatic metastasis Atrial fibrillation not on chronic anticoagulation therapy Hypertension Hyperlipidemia Hypothyroidism Plan: Acute left-sided pyelonephritis: Continue with broad-spectrum antibiotics, blood cultures have been obtained. Patient failed outpatient therapy with Macrobid/Bactrim, renal function intact, patient able to urinate without difficulty at this time. No CVA tenderness on exam. His clinical improvement over the course next 48-72 hours. Patient still with some nausea vomiting we will keep n.p.o. at this time and advance as tolerated. IV fluids. Incidental findings of bilateral pulmonary nodules measuring up to 9 mm, left pleural thickening with small left pleural effusion, multiple hepatic hypodensities suggestive of hepatic metastasis: Discussed this at length with patient, no palpable lymphadenopathy on exam, recommend follow-up at discharge with pulmonology/oncology. Atrial fibrillation not on chronic anticoagulation therapy: Patient no longer on blood thinners, were discontinued after previous incident. Patient on sotalol will hold until patient is tolerating p.o. Hypertension: Obtain and continue medication Hyperlipidemia: Obtain and continue medication Hypothyroidism: Obtain and continue medication DVT PPX: Lovenox Code status: Fullpatient stated that she would think further about this, would not want to be kept alive on mechanical ventilation etc. Discharge Plan: Home Plan to discharge in: Greater than 2 days - Advance Directives Does patient have a Living Will: No Does patient have a Durable POA for Healthcare: No - Code Status/Comfort Care Code Status Assessed: Yes (Full code) Critical Care: No Time Spent Managing Pts Care (In Minutes): 55 <Diomedes Jones - Last Filed: 05/06/21 00:16> - Plan Patient seen and examined on rounds this morning. Patient reports improvement of her pain and nausea. Review of CT also showed some moderate stool burden Patient reports last bowel movement was 4 days ago Agreeable to stool softener and Dulcolax suppository If doing well, can advance diet later today Continue IV antibiotics Resume home medications <Jose Francisco Infante - Last Filed: 05/06/21 15:41>
[2021-05-06] MEDS ORDERED: CEFTRIAXONE 1000 MG/VIAL ONE (01:52)
[2021-05-06] MEDS ORDERED: NA CHLORIDE 0.9% 100 ML ONE (01:53)
[2021-05-06] MEDS ORDERED: ONDANSETRON 4 MG/2 ML VIAL IV PRN (02:49)
[2021-05-06] MEDS ORDERED: MORPHINE 2 MG/ML SYR IV PRN (02:49)
[2021-05-06] MEDS ORDERED: MORPHINE 2 MG/ML SYR ONE (03:28)
[2021-05-06] MEDS ORDERED: D5 0.45 NS 1,000 ML IV ONE ×2 (03:29→13:52)
[2021-05-06 04:48] VITALS: BMI 24.1
[2021-05-06 07:14] LABS: Urine Appearance CLEAR (Clear); Urine Bilirubin NEGATIVE (Negative); Urine Blood TRACE (Negative); Urine Color YELLOW (Yellow); Urine Glucose NEGATIVE (Negative); Urine Protein NEGATIVE (Negative); Urine pH 6.5 (5.0-7.0)
[2021-05-06 07:23] LABS: Urine Microscopic Reflex ORDER UMIC
[2021-05-06 07:39] LABS: Absolute Lymphocytes (CBC) 1.2 K/uL (0.7-4.9); Basophils % 0.5 % (0-1.3); Hematocrit 31.4 % (36.0-45.0); Lymphocytes % 10.4 % (15.3-44.8); MPV 8.2 fL (7.6-11.3); RBC Red Blood Cell Count 3.52 M/uL (3.86-4.86)
[2021-05-06 07:40] LABS: Potassium 3.8 mmol/L (3.5-5.1)
[2021-05-06 07:54] LABS: Urine Bacteria <20 /HPF (<20); Urine RBC <5 /HPF (NONE SEEN)
[2021-05-06] MEDS ORDERED: BISACODYL 10 MG RECTAL SUPP PR ONE (07:55)
[2021-05-06] MEDS: DOCUSATE NA 100 MG CAP PO SCH ×2 (09:00→20:29)
[2021-05-06] MEDS: ENOXAPARIN 30 MG/0.3 ML SQ SCH (09:00)
[2021-05-06] MEDS ORDERED: CEFEPIME 2 GM VIAL IV SCH (09:00)
[2021-05-06] MEDS ORDERED: ENOXAPARIN 40 MG/0.4 ML SQ SCH (09:00)
[2021-05-06] MEDS: CEFEPIME/SWI 1gm 10 ML IVP SCH (09:00)
[2021-05-06] MEDS ORDERED: ENOXAPARIN 30 MG/0.3 ML SQ ONE (09:14)
[2021-05-06] MEDS ORDERED: BISACODYL 10 MG RECTAL SUPP ONE (09:14)
--- NOTE | 2021-05-06 09:32 | RAD REPORT ---
EXAM DESCRIPTION: US - Renal Ultrasound-Complete - 05/06/2021 4:30 am CLINICAL HISTORY: eval kidney/pyelo COMPARISON: Abdomen Pelvis Wo Contrast dated 05/05/2021; Abdomen Pelvis W Contrast dated FINDINGS: Kidneys are normal size and symmetric in size. Cortical thickness is normal. There is hete rogeneous cortical echogenicity. This matches the CT study and is consistent with pyelonephritis. Dil ated calices are noted in the left kidney. The central renal pelvis is more difficult to identify. 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 No right-sided hydronephrosis. No bladder wall thickening or bladder wall mass. There is echogenic debris within the lumen of the bl adder layering on the dependent portion. IMPRESSION: Mild dilatation of the duplicated left-sided collecting system matching the prior day CT study. Heterogeneous left renal parenchymal echogenicity as a correlate to the prior very CT finding. No obstructing calculus identifiable on the earlier CT study. A recently passed stone, blood or infec tious/inflammatory debris can cause this dilatation pattern. No dilatation of the right collecting system.
[2021-05-06] MEDS ORDERED: CEFEPIME/SWI 1gm 10 ML ONE (10:59)
[2021-05-06] MEDS ORDERED: DOCUSATE NA 100 MG CAP PO ONE (11:01)
[2021-05-06] MEDS: D5 0.45 NS 1,000 ML IV SCH ×2 (12:49→23:56)
[2021-05-06] MEDS ORDERED: POTASSIUM CL SA 10 MEQ TAB PO ONE ×2 (13:40)
--- NOTE | 2021-05-06 15:46 | RAD REPORT ---
EXAM DESCRIPTION: CT - Abdomen Pelvis Wo Contrast - 05/05/2021 10:19 pm COMPARISON: CT abdomen pelvis May 03, 2021 CLINICAL HISTORY: [facility] LLQ pain;Abd pain TECHNIQUE: CT of the abdomen and pelvis was acquired without IV contrast material. Coronal and sag ittal reconstructions were obtained. Automated exposure control was utilized on this examination as a dose lowering technique. FINDINGS: Lung bases: Bibasilar pulmonary nodules measure up to 9 mm. Left pleural thickening and sm all left pleural effusion is present. Mild cardiomegaly. *Evaluation of solid organs is limited due to lack of IV contrast. Liver: Multiple hepatic hypodensities measure up to 2.5 cm. Gallbladder and biliary: Cholecystectomy. Unremarkable biliary tree. Pancreas: Normal. Spleen: Normal. Adrenal glands: Normal adrenal glands. Kidneys: Hyperdense fluid is noted in the duplicated left collecting system which is mildly dilated. Left renal cortical hypodensities are noted. There is left perinephric fluid layering into the left r etroperitoneum. A punctate nonobstructing calculus is noted in the right kidney. Stomach and Small Bowel: The stomach and small bowel are normal. Urinary bladder: Normal. Uterus and Adnexa: Hysterectomy. Colon and Appendix: Large stool burden is present in the colon. No evidence of appendicitis. Retroperitoneum and lymph nodes: Retroperitoneal lymph nodes are increased in number but not in size. Vascular: Severe multivessel atherosclerosis. Peritoneal cavity: No ascites or free air. Musculoskeletal and soft tissues: Soft tissues are unremarkable. Grade 2 anterolisthesis L5 on S1 wit h left L5 pars defect. Lumbar spondylosis is present. No aggressive bone lesions. No compression fr acture. IMPRESSION: 1. Dilated duplicated left collecting system with hyperdense fluid which may represent infection or blood products. Left renal cortical hypodensities may represent residual contrast from recent contrast-enhanced exam and less likely small intraparenchymal hematomas or intrarenal infectio n. Fat stranding surrounding the left kidney and ureters is suggestive of infection. 2. Bibasilar pulmonary nodules measure up to 9 mm. Findings are concerning for metastatic disease. Left pleural thickening and small left pleural effusion which could represent a small empyema or shimon gnant effusion. 3. Hepatic metastases. 4. Constipation. Electronically signed by: Silvano Holm MD 05/05/2021 11:33 PM CDT Due to temporary technical issues with the PACS/Fluency reporting system, reports are being signed by the in house radiologists without review as a courtesy to insure prompt reporting. The interpreting radiologist is fully responsible for the content of the report.
[2021-05-06] MEDS: SOTALOL HCL 80 MG TAB PO SCH (20:30)
[2021-05-06] MEDS: MELATONIN 5 MG TABLET PO PRN (22:08)
[2021-05-06] MEDS ORDERED: GABAPENTIN 300 MG CAP ONE (22:28)
[2021-05-07] MEDS ORDERED: TEMAZEPAM 15 MG CAP PO ONE (01:55)
[2021-05-07] MEDS ORDERED: HYDRALAZINE HCL 20 MG/ML VIAL IV PRN (05:07)
[2021-05-07 06:03] LABS: Absolute Lymphocytes (CBC) 1.2 K/uL (0.7-4.9); Basophils % 0.6 % (0-1.3); Hematocrit 31.4 % (36.0-45.0); Lymphocytes % 11.9 % (15.3-44.8); MPV 8.1 fL (7.6-11.3); RBC Red Blood Cell Count 3.54 M/uL (3.86-4.86)
--- NOTE | 2021-05-07 06:12 | P.PN ---
Subjective Date of Service: 05/07/21 Primary Care Provider: Dr. Shirley Chief Complaint: Pyelonephritis Subjective: Improving (no longer having nausea/vomiting, denies abdominal pain. having intermittent L lower back pain, more severe episode this morning. difficulty sleeping. no dysuria, urinating without issue. tolerated liquid diet) Review of Systems 10-point ROS is otherwise unremarkable Physical Examination - Vital Signs Temperature: 97.4 F Blood Pressure: 159/77 Pulse: 72 Respirations: 18 Pulse Ox (%): 95 Assessment & Plan Physician Review Additional Text: Physical Exam General: Alert, In no apparent distress, Oriented x3 HEENT: Normal conjunctiva, sclera anicteric Respiratory: Clear to auscultation bilaterally, Normal air movement Cardiovascular: Irregularly irregular heart rhythm, rate controlled Gastrointestinal: Soft, nontender, nondistended Musculoskeletal: mild tenderness to palpation in left lower back, over posterior iliac crest region, no spinal tenderness Integumentary: No rashes Neurological: Normal speech, Normal strength at 5/5 x4 extr Problem list Acute left-sided pyelonephritis Incidental findings of bilateral pulmonary nodules measuring up to 9 mm, left pleural thickening with small left pleural effusion, multiple hepatic hypodensities suggestive of hepatic metastasis Atrial fibrillation not on chronic anticoagulation therapy Hypertension Hyperlipidemia Hypothyroidism Chronic left lumbar pain Continue cefepime Blood cultures and urine culture preliminary without growth Patient failed outpatient therapy with Macrobid/Bactrim, did not tolerate well. These medications may have contributed to her nausea/vomiting CT with some light fat stranding, seen on CT from last week as well Renal ultrasound negative for any stones, has mild hydronephrosis Leukocytosis improving, CRP downtrending, afebrile unclear if cultures negative due to recent antibiotic usage, will consult ID RUQ U/S to eval hepatis lesions continue home sotalol, states she does not take anticoagulation and has discussed this at length previously with Dr. Knight continue home meds as appropriate L lumbar back pain - acute on chronic, appears to be MSK related. CT does show pars defect that may be causing some pain. likely worsened from laying in bed pain improved with heating pad and given morphine will order flexeril Dispo: anticipate dc home in 1-2 days Time Spent Managing Pts Care (In Minutes): 35
[2021-05-07 06:24] LABS: Albumin 2.8 g/dL (3.4-5.0); Bilirubin Total 0.5 mg/dL (0.2-1.0); Potassium 3.8 mmol/L (3.5-5.1); Protein, Total 6.6 g/dL (6.4-8.2)
[2021-05-07] MEDS: DOCUSATE NA 100 MG CAP PO SCH ×2 (08:13→21:02)
[2021-05-07] MEDS: SOTALOL HCL 80 MG TAB PO SCH ×2 (08:13→21:03)
[2021-05-07] MEDS: ENOXAPARIN 30 MG/0.3 ML SQ SCH (08:16)
[2021-05-07] MEDS: D5 0.45 NS 1,000 ML IV SCH ×2 (08:49→10:44)
[2021-05-07] MEDS ORDERED: POTASSIUM CL SA 10 MEQ TAB PO ONE (09:00)
[2021-05-07] MEDS: CEFEPIME/SWI 1gm 10 ML IVP SCH (10:44)
[2021-05-07] MEDS ORDERED: CYCLOBENZAPRINE 10 MG TAB PO PRN (11:47)
--- NOTE | 2021-05-07 16:12 | RAD REPORT ---
EXAM DESCRIPTION: US - Liver Only - 05/07/2021 3:49 pm CLINICAL HISTORY: Liver lesions COMPARISON: May 05, 2021 cat scan FINDINGS: The liver contains multiple hypoechoic, isoechoic and hyperechoic nodules. Some have hypoe choic rims. The nodules vary in size from a few millimeters to 24 millimeters. The right and left lob es are involved Biliary tree is not dilated. IMPRESSION: Multiple hepatic lesions compatible with metastases
[2021-05-07] MEDS: CYCLOSPORINE OPTH SCH (21:00)
[2021-05-07] MEDS ORDERED: TRAZODONE 50 MG TABLET PO SCH (21:00)
[2021-05-08] MEDS: MELATONIN 5 MG TABLET PO PRN (01:26)
[2021-05-08 04:44] LABS: Basophils % 0.7 % (0-1.3); Hematocrit 30.7 % (36.0-45.0); Lymphocytes % 13.2 % (15.3-44.8); MPV 7.9 fL (7.6-11.3); RBC Red Blood Cell Count 3.46 M/uL (3.86-4.86)
[2021-05-08 05:16] LABS: Albumin 2.6 g/dL (3.4-5.0); Bilirubin Total 0.5 mg/dL (0.2-1.0); C-Reactive Protein 96.7 mg/L (<3.00); Magnesium 1.9 mg/dL (1.8-2.4); Potassium 4.1 mmol/L (3.5-5.1); Protein, Total 6.3 g/dL (6.4-8.2)
[2021-05-08] MEDS ORDERED: LEVOTHYROXINE SOD 0.075 MG TAB PO SCH (06:00)
[2021-05-08] MEDS ORDERED: FENOFIBRATE 48 MG TAB PO SCH (09:00)
[2021-05-08] MEDS ORDERED: [UNRECOGNIZED DRUG - OTHER] PO SCH (09:00)
[2021-05-08] MEDS ORDERED: ASPIRIN EC 81 MG TAB PO SCH (09:00)
[2021-05-08] MEDS ORDERED: ATORVASTATIN 40 MG TAB PO SCH (09:00)
[2021-05-08] MEDS: CYCLOSPORINE OPTH SCH (09:00)
[2021-05-08] MEDS: ENOXAPARIN 30 MG/0.3 ML SQ SCH (09:31)
[2021-05-08] MEDS: SOTALOL HCL 80 MG TAB PO SCH (09:32)
[2021-05-08] MEDS: DOCUSATE NA 100 MG CAP PO SCH (09:32)
[2021-05-08] MEDS: CEFEPIME/SWI 1gm 10 ML IVP SCH (09:33)
[2021-05-08 09:48] VITALS: O2SAT 75
--- NOTE | 2021-05-08 13:18 | P.CNS ---
Date of Consult: 05/08/21 Primary Care Provider: Dr. Shirley Chief Complaint: Pyelonephritis History of Present Illness: Patient is an 85 year old female with a past medical history of AFib, hypertension, hypothyroidism who presented to the emergency department due to left-sided flank pain. Patient was recently hospitalized at this facility [address] and had CT findings consistent with early/possible pyelonephritis and was treated with Macrobid and Bactrim however had no relief of symptoms. Patient re-presented to the ED to the left flank pain vomiting and feeling unwell. S urine and blood culture showed no growth, repeat sees T scan shows fat stranding around left kidney concerning for pyelonephritis. Patient empirically placed on cefepime. Patient currently denies nausea, vomiting, shortness breath, chest pain Allergies ampicillin Allergy (Verified 06/23/18 10:48) Unknown ciprofloxacin Allergy (Verified 06/23/18 10:48) Unknown codeine Allergy (Verified 06/23/18 10:48) Unknown cyanocobalamin (vitamin B12) [From Hemocyte-F] Allergy (Verified 06/23/18 10:48) Unknown doxycycline [From Doryx] Allergy (Verified 06/23/18 10:48) Unknown ferrous fumarate [From Hemocyte-F] Allergy (Verified 06/23/18 10:48) Unknown folic acid [From Hemocyte-F] Allergy (Verified 06/23/18 10:48) Unknown iron [From Hemocyte-F] Allergy (Verified 06/23/18 10:48) Unknown lisinopril Allergy (Verified 06/23/18 10:48) Unknown nabumetone [From Relafen] Allergy (Verified 06/23/18 10:48) Unknown prednisone [From Deltasone] Allergy (Verified 06/23/18 10:48) Unknown tramadol Allergy (Verified 06/23/18 10:48) Unknown valdecoxib [From Bextra] Allergy (Verified 06/23/18 10:48) Unknown mirabegron [From Myrbetriq] Adverse Reaction (Verified 06/23/18 10:48) afib annaprox Allergy (Uncoded 06/23/18 10:48) Unknown Home Medications: Aspirin [Aspirin EC 81 MG] 81 mg PO DAILY 06/18/18 Atorvastatin Calcium [Lipitor] 40 mg PO DAILY 06/18/18 Cholecalciferol (Vitamin D3) [Vitamin D3] 1,000 unit PO DAILY 06/18/18 Cyclosporine [Restasis] 1 drop EACH EYE BID 06/18/18 Fenofibrate [Tricor] 48 mg PO DAILY 06/18/18 Levothyroxine [Synthroid] 75 mcg PO [id number] 06/18/18 Multivitamin [Multivitamins] 1 each PO DAILY 06/18/18 Mv-Min/FA/Vit K/Lycop/Lut/Zeax [Ocuvite Eye + Multi Tablet] 1 each PO DAILY 06/18/18 Sotalol HCl [Sotalol] 120 mg PO Q12H 06/18/18 Turmeric Root Extract [Turmeric] 500 mg PO DAILY 06/18/18 Loteprednol Etabonate 1 drop EACH EYE BID 05/06/21 Nitrofurantoin Monohyd/M-Cryst [Macrobid 100 mg Capsule] 1 tab PO Q12H 05/06/21 Sulfamethoxazole/Trimethoprim [Bactrim Ds Tablet] 1 tab PO Q12H 05/06/21 - Past Medical/Surgical History -: Atrial fibrillation not on chronic anticoagulation therapy -: Hypertension -: Hypothyroidism -: Hyperlipidemia -: Cholecystectomy -: Hysterectomy Psychosocial/ Personal History: Retired lives at home with - Family History Father Medical History: Heart disease Brother Medical History: Heart disease - Social History Alcohol use: No CD- Drugs: No Caffeine use: No Place of Residence: Home Review of Systems 10-point ROS is otherwise unremarkable Physical Examination Temp Pulse Resp BP Pulse Ox 99.2 F 75 13 159/66 H 95 05/08/21 08:00 05/08/21 08:00 05/08/21 08:00 05/08/21 08:00 05/08/21 08:00 General: Alert, In no apparent distress, Oriented x3 HEENT: Atraumatic, Normocephalic Neck: Supple, 2+ carotid pulse no bruit Respiratory: Clear to auscultation bilaterally, Normal air movement Cardiovascular: No edema, Normal pulses Capillary refill: <2 Seconds Gastrointestinal: Normal bowel sounds, Soft and benign Musculoskeletal: No clubbing, No swelling Integumentary: No rashes, No breakdown, No significant lesion Conclusions/Impression: Antibiotics: Cefepime Start: 05/06 Stop:-- Assessment/plan Left sided pyelonephritis Patient recently treated at this facility for pyelonephritis, repeat CT imaging showed fat stranding around left kidney concerning for pyelo. However urine culture shows no growth. Continue ill have with cefepime during duration of hospital stay, can Dc on oral Levaquin. Bibasilar pulmonary nodules with hepatic metastasis Incidental finding on CT imaging. Internal Medicine has talked to patient about results. Anemia, hypothyroidism, protein caloric malnutrition Medical management per primary team Plan of care discussed with Dr. Ramon Thank you for consultation
[2021-05-08 14:39] LABS: Protime INR 1.28
[2021-05-08 15:15] VITALS: TEMP 98.5
[2021-05-08 18:46] VITALS: BP 155/66
--- NOTE | 2021-05-08 21:07 | P.DS ---
Admission Date: 05/06/21 Discharge Date: 05/08/21 Primary Care Provider: Dr. Shirley Disposition: ROUTINE DISCHARGE Discharge Condition: GOOD Reason for Admission: Pyelonephritis Consultations: ID - Dr. Ramon Procedures: CT Abd/Pelvis (05/05): FINDINGS: Lung bases: Bibasilar pulmonary nodules measure up to 9 mm. Left pleural thickening and small left pleural effusion is present. Mild cardiomegaly. *Evaluation of solid organs is limited due to lack of IV contrast. Liver: Multiple hepatic hypodensities measure up to 2.5 cm. Gallbladder and biliary: Cholecystectomy. Unremarkable biliary tree. Pancreas: Normal. Spleen: Normal. Adrenal glands: Normal adrenal glands. Kidneys: Hyperdense fluid is noted in the duplicated left collecting system which is mildly dilated. Left renal cortical hypodensities are noted. There is left perinephric fluid layering into the left retroperitoneum. A punctate nonobstructing calculus is noted in the right kidney. Stomach and Small Bowel: The stomach and small bowel are normal. Urinary bladder: Normal. Uterus and Adnexa: Hysterectomy. Colon and Appendix: Large stool burden is present in the colon. No evidence of appendicitis. Retroperitoneum and lymph nodes: Retroperitoneal lymph nodes are increased in number but not in size. Vascular: Severe multivessel atherosclerosis. Peritoneal cavity: No ascites or free air. Musculoskeletal and soft tissues: Soft tissues are unremarkable. 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 Lumbar spondylosis is present. No aggressive bone lesions. No compression fracture. IMPRESSION: 1. Dilated duplicated left collecting system with hyperdense fluid which may represent infection or blood products. Left renal cortical hypodensities may represent residual contrast from recent contrast-enhanced exam and less likely small intraparenchymal hematomas or intrarenal infection. Fat stranding surrounding the left kidney and ureters is suggestive of infection. 2. Bibasilar pulmonary nodules measure up to 9 mm. Findings are concerning for metastatic disease. Left pleural thickening and small left pleural effusion which could represent a small empyema or malignant effusion. 3. Hepatic metastases. 4. Constipation. Renal U/S (05/06): FINDINGS: Kidneys are normal size and symmetric in size. Cortical thickness is normal. There is heterogeneous cortical echogenicity. This matches the CT study and is consistent with pyelonephritis. Dilated calices are noted in the left kidney. The central renal pelvis is more difficult to identify. The patient has a duplicated left collecting system. No right-sided hydronephrosis. No bladder wall thickening or bladder wall mass. There is echogenic debris within the lumen of the bladder layering on the dependent portion. IMPRESSION: Mild dilatation of the duplicated left-sided collecting system matching the prior day CT study. Heterogeneous left renal parenchymal echogenicity as a correlate to the prior very CT finding. No obstructing calculus identifiable on the earlier CT study. A recently passed stone, blood or infectious/inflammatory debris can cause this dilatation pattern. No dilatation of the right collecting system. Liver U/S (05/07): FINDINGS: The liver contains multiple hypoechoic, isoechoic and hyperechoic nodules. Some have hypoechoic rims. The nodules vary in size from a few millimeters to 24 millimeters. The right and left lobes are involved Biliary tree is not dilated. IMPRESSION: Multiple hepatic lesions compatible with metastases Problem list Acute left-sided pyelonephritis Incidental findings of bilateral pulmonary nodules measuring up to 9 mm, left pleural thickening with small left pleural effusion Incidental finding of multiple hepatic hypodensities suggestive of hepatic metastasis; unknown primary, likely colon Atrial fibrillation not on chronic anticoagulation therapy Hypertension Hyperlipidemia Hypothyroidism Chronic left lumbar pain Brief History of Present Illness: 85-year-old female with history of atrial fibrillation, hypertension, hypothyroidism presents emerged from and for left-sided flank pain. Patient was here 3 days prior and had findings consistent with an early/possible pyelonephritis on CT scan was treated with Macrobid/Bactrim but has had worsening of symptoms since then. Patient with left flank pain, vomiting x2 this evening and feeling unwell. Vital signs are stable, patient does not appear septic this time labs significant for white blood cell count 13.1, this is increased from 8.82 days ago sodium 134 GFR 47 glucose 118 AST 53 urinalysis less than 20 bacteria nitrite negative leukoesterase negative, CT abdomen pelvis without contrast demonstrates dilated duplicated left collecting system with hyperdense fluid which may represent infection or blood product left renal cortical hypodensities may represent residual contrast from recent contrast- enhanced exam and less likely small intraparenchymal hematomas or intrarenal infection, fat stranding surrounding the left kidney and ureters is suggestive of infection. Bibasilar pulmonary nodules noted up to 9 mm findings concerning for metastatic disease left pleural thickening and small left pleural effusion could represent small empyema or malignant effusion, also hepatic metastasis noted. Patient seen and examined patient with no abdominal tenderness or CVA tenderness on exam, patient not tachycardic or hypotensive. Patient started on cefepime in the emergency department, blood cultures ordered will admit for further evaluation and management of left-sided pyelonephritis. Hospital Course: Treated empirically with IV cefepime and IV fluids. She had improvement of her symptoms. She developed slight worsening of L lumbar back pain (Chronic) which she attributed to the hospital beds. Improved with flexeril and heating pad. Urine culture did not grow any bacteria, similar to the urine culture last week. She had improvement of her leukocytosis and CRP. Infectious disease was consulted given CT findings and sterile urine x2. Recommended completing treatment for pyelonephritis with levaquin on discharge. Incidental pulmonary nodules were found on CT scan, as well as incidental multiple small hepatic hypodensities suggestive of hepatic metastasis. Review of imaging with radiologist also reported some slight irregularity in the colon / near rectum. Patient has never had a colonoscopy and has been dealing with constipation for some time now. The primary cancer is likely colon / rectal cancer with metastasis to the liver, or less likely, lung is primary. Radiologist stated they should be able to get a biopsy of one of the liver nodules, however, patient was taking aspirin and this would be delayed by at least 5 days. Patient was feeling better and wanted to be discharged home with plans to f/u with PCP, Heme/Onc, and obtain liver biopsy as outpatient. Recommended if liver biopsy inconclusive / unsuccessful, to consider colonoscopy to evaluate for colon cancer. She was interested in finding out what cancer this is, but is leaning towards less aggressive / no chemo/radiation therapy. This was discussed with the patient, her , and her oldest son, Marcello. Vital Signs/Physical Exam: Physical Exam General: Alert, In no apparent distress, Oriented x3 HEENT: Normal conjunctiva, sclera anicteric Respiratory: Clear to auscultation bilaterally, Normal air movement Cardiovascular: Irregularly irregular heart rhythm, rate controlled Gastrointestinal: Soft, nontender, nondistended Musculoskeletal: mild tenderness to palpation in left lower back, over posterior iliac crest region, no spinal tenderness Integumentary: No rashes Neurological: Normal speech, Normal strength at 5/5 x4 extr Temp Pulse Resp BP Pulse Ox 98.5 F 74 15 155/66 H 98 05/08/21 16:00 05/08/21 16:00 05/08/21 16:00 05/08/21 16:00 05/08/21 16:00 Laboratory Data at Discharge: WBC 7.80 K/uL (4.3-10.9) D 05/08/21 04:17 Hgb 10.4 g/dL (12.0-15.0) L 05/08/21 04:17 Hct 30.7 % (36.0-45.0) L 05/08/21 04:17 Plt Count 271 K/uL (152-406) 05/08/21 04:17 PT 14.7 SECONDS (9.5-12.5) H 05/08/21 14:03 INR 1.28 05/08/21 14:03 APTT 31.4 SECONDS (24.3-36.9) 05/08/21 14:03 Sodium 138 mmol/L (136-145) 05/08/21 04:17 Potassium 4.1 mmol/L (3.5-5.1) 05/08/21 04:17 BUN 12 mg/dL (7-18) 05/08/21 04:17 Creatinine 1.04 mg/dL (0.55-1.3) 05/08/21 04:17 Glucose 102 mg/dL (74-106) 05/08/21 04:17 Magnesium 1.9 mg/dL (1.8-2.4) 05/08/21 04:17 Total Bilirubin 0.5 mg/dL (0.2-1.0) 05/08/21 04:17 AST 67 U/L (15-37) H 05/08/21 04:17 ALT 46 U/L (12-78) 05/08/21 04:17 Alkaline Phosphatase 65 U/L (45-117) 05/08/21 04:17 Lipase 143 U/L (73-393) 05/05/21 21:40 Home Medications: Atorvastatin Calcium [Lipitor] 40 mg PO DAILY 06/18/18 Cholecalciferol (Vitamin D3) [Vitamin D3] 1,000 unit PO DAILY 06/18/18 Cyclosporine [Restasis] 1 drop EACH EYE BID 06/18/18 Fenofibrate [Tricor*] 48 mg PO DAILY 06/18/18 Levothyroxine [Synthroid*] 75 mcg PO [id number] 06/18/18 Multivitamin [Multivitamins] 1 each PO DAILY 06/18/18 Mv-Min/FA/Vit K/Lycop/Lut/Zeax [Ocuvite Eye Plus Multi Tablet] 1 each PO DAILY 06/18/18 Sotalol HCl [Sotalol] 120 mg PO Q12H 06/18/18 Turmeric Root Extract [Turmeric] 500 mg PO DAILY 06/18/18 Loteprednol Etabonate 1 drop EACH EYE BID 05/06/21 Cyclobenzaprine HCl [Flexeril] 5 mg PO Q8H PRN 4 Days #10 tablet 05/08/21 Docusate [Colace Cap*] 100 mg PO BID 30 Days #60 cap 05/08/21 Polyethylene Glycol 3350 [Miralax] 17 gm PO DAILY 30 Days #30 powd.pack 05/08/21 Trazodone [Desyrel*] 50 mg PO SEECOM 60 Days #30 tablet 05/08/21 levoFLOXacin [Levaquin] 750 mg PO DAILY 7 Days #7 tab 05/08/21 New Medications: Docusate [Colace Cap*] 100 mg PO BID 30 Days #60 cap Trazodone [Desyrel*] 50 mg PO SEECOM 60 Days #30 tablet Cyclobenzaprine HCl [Flexeril] 5 mg PO Q8H PRN 4 Days #10 tablet PRN Reason: Muscle Spasms levoFLOXacin [Levaquin] 750 mg PO DAILY 7 Days #7 tab Polyethylene Glycol 3350 [Miralax] 17 gm PO DAILY 30 Days #30 powd.pack Physician Discharge Instructions: You were found to have CT findings concerning for left kidney infection (pyelonephritis) similar to previous CT scan. You were treated with antibiotics. Despite CT findings, your urine did not grow any bacteria, possibly due to the recent antibiotics you received. Infectious Disease was consulted, and recommended discharge with Levaquin. You were also incidentally found to have lung nodules that may possibly be cancer, as well as multiple small lesions in your liver highly suggestive of metastatic cancer. It is currently unclear if the primary cancer would be from the lung or possibly from your colon. Recommend biopsy of your liver lesions. Unfortunately could not be done while you were in the hospital due to taking aspirin. You will need to stop aspirin for 5 days before a biopsy is done. Recommend undergoing a colonscopy to evaluate for colon cancer. Follow up with your PCP in 3-5 days. Follow up with Dr. Bland (Hematology/Oncology) in the next few weeks. For your constipation: recommend stool softener (colace) twice a day, and taking miralax daily. You can add an extra miralax packet each day until you have daily soft bowel movements. If this is not enough, consider use of a suppository, or use an enema (if passing hard stools). Please make sure to drink plenty of water so you don't get dehydrated from this regimen. Diet: Regular Activity: Ad davion Followup: Liliana Shirley DO [Primary Care Provider] - Time spent managing pt's care (in minutes): 45
== END 2021-05-08 18:50 | disposition home or self-care (01) | DRG 690 ==
LOC: ER 19:49 → ERHOLD 05-06 00:07 → 2ND 05-06 15:45
PROVIDERS: ADMIT Hospitalist; ATTEND Hospitalist
DX: N10 Acute pyelonephritis (principal); C18.9 Malignant neoplasm of colon, unspecified; C78.7 Secondary malignant neoplasm of liver and intrahepatic bile duct; C34.90 Malignant neoplasm of unspecified part of unspecified bronchus or lung; E46 Unspecified protein-calorie malnutrition; K59.00 Constipation, unspecified; I48.91 Unspecified atrial fibrillation; I10 Essential (primary) hypertension; E78.5 Hyperlipidemia, unspecified; E03.9 Hypothyroidism, unspecified; M54.5 Low back pain; Z68.24 Body mass index [BMI] 24.0-24.9, adult; D64.9 Anemia, unspecified; Z20.822 Contact with and (suspected) exposure to COVID-19
CPT/HCPCS: 36415; 71045; 74176; 74177; 76705; 76770; 80048; 80053; 80076; 81003; 81015; 83690; 83735; 83880; 84145; 84484; 85025; 85610; 85730; 86140; 87040; 87086; 87088; 93005; 96361; 96365; 96375; 97161; 99284; 99285; J0360; J0692; J0696; J1650; J2270; J2405; J7030; J7040; J7799; Q9967; U0003

== ENCOUNTER 2021-05-19 11:52 | Emergency (ER) | payer OTHER ==
[2021-05-19 12:43] LABS: Absolute Lymphocytes (CBC) 1.1 K/uL (0.7-4.9); Basophils % 0.8 % (0-1.3); Hematocrit 34.2 % (36.0-45.0); Lymphocytes % 9.7 % (15.3-44.8); MPV 6.6 fL (7.6-11.3); RBC Red Blood Cell Count 3.87 M/uL (3.86-4.86)
[2021-05-19 13:11] LABS: Bilirubin Direct 0.1 mg/dL (0-0.2); Bilirubin Total 0.2 mg/dL (0.2-1.0); Potassium 4.3 mmol/L (3.5-5.1); Protein, Total 7.9 g/dL (6.4-8.2)
[2021-05-19 13:21] LABS: Blood Morphology Comment NOT SEEN (NOT SEEN); Platelet Estimate INCR
--- NOTE | 2021-05-19 13:54 | RAD REPORT ---
EXAM DESCRIPTION: CTAbdomen Pelvis W Contrast - 05/19/2021 1:36 pm CLINICAL HISTORY: Abdominal pain. ABD PAIN COMPARISON: Abdomen Pelvis W Contrast dated 05/03/2021; CT ABD PELVIS W CONTRAST dated 07/27/2015; A bdomen Pelvis Wo Contrast dated 05/05/2021; Liver Only dated 05/07/2021 TECHNIQUE: Biphasic CT imaging of the abdomen and pelvis was performed with 100 ml non-ionic IV cont rast. All CT scans are performed using dose optimization technique as appropriate and may include automated exposure control or mA/KV adjustment according to patient size. FINDINGS: Numerous small nodules are present in both lung bases. The liver contains multiple scattered hypodense masses the largest in the region of the dome of the l iver measuring 28 mm most compatible with metastatic disease. The spleen is normal in size. Both adre nal glands are normal. 3 mm stone is present distal right ureter with mild right hydronephrosis prese nt. Punctate stone is seen inferior calyx right kidney. 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 Multiple enhancing the fluid collections are seen in the inferior left renal moiety and there is enhancement and mild delete of t he left proximal ureter. Inflammatory changes surround the inferior left renal pelvis/moiety with mul tiple small cystic enhancing collection seen surrounding the this region and extending inferiorly. Th e upper pole moiety of the left kidney is mildly dilated. There is mild inflammatory fat stranding al johnny the left anterior pararenal fascia. No bowel obstruction, free fluid or free air. The appendix is normal. No evidence of significant ly mphadenopathy. Prominent lumbar degenerative changes are seen. IMPRESSION: A significant infection with multiple small abscess is suspected involving the inferior left renal pelvis/moiety with the including the proximal left inferior ureter. 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 Mild hydronephrosis of the upper moiety of left kidney. 3 mm stone right UVJ with mild right hydronephrosis. Extensive liver metastatic disease suspected. Pulmonary nodules bilaterally in lung bases likely metastatic as well.
[2021-05-19] MEDS ORDERED: NA CHLORIDE 0.9% 500 ML ONE (14:24)
--- NOTE | 2021-05-19 14:47 | RAD REPORT ---
EXAM DESCRIPTION: CT - Thorax Wo Con CLINICAL HISTORY: Chest pain metastatic process COMPARISON: No comparisons FINDINGS: Innumerable varying size randomly scattered pulmonary nodules are present bilaterally most compatible with metastatic disease. Trace pleural fluid on the left is present. No pneumothorax. Small mildly enlarged lymph node is seen pericardial fat measuring 11 mm. Enlarged precarinal lymph n ode is present measuring 17 mm. Several upper limit of normal lymph nodes are present pretracheal reg ion largest measuring 10 mm. Multiple enlarged lymph nodes are seen along the base of the neck/ supra clavicular clavicular region, largest on the left measuring 14 mm. Moderate thoracic degenerative changes are present. Upper abdominal abnormality is fully detailed on dedicated CT abdomen performed the same date. All CT scans are performed using dose optimization technique as appropriate and may include automated exposure control or mA/KV adjustment according to patient size. IMPRESSION: Innumerable pulmonary nodules bilaterally most compatible with metastatic disease. Enlarged lymph nodes are seen in the upper mediastinum and most prominently noted at the base of the neck/supraclavicular regions bilaterally.
[2021-05-19] MEDS ORDERED: CEFEPIME 1 GM/100 ML BAG IV ONE (15:00)
[2021-05-19] MEDS ORDERED: VANCOMYCIN/NS 1 gm 1 GM/250 ML BAG IV ONE (15:00)
--- NOTE | 2021-05-19 15:50 | EDPHYS ---
Physician Documentation [facility] Name: Melani Jimenez Age: 85 yrs Sex: Female : 1935 Arrival Date: 05/19/2021 Time: 11:55 Bed 6 Private MD: ED Physician Salvador Infante HPI: 05/19 12:38 This 85 yrs old Female presents to ER via Wheelchair with complaints of jr8 Black/Tarry Stools. 12:38 Onset: The symptoms/episode began/occurred gradually, 2 day(s) ago. Abdominal pain: jr8 located in the anterior aspect of left lateral abdomen. Modifying factors: The symptoms are alleviated by nothing, the symptoms are aggravated by nothing. Associated signs and symptoms: The patient has no apparent associated signs or symptoms. Severity of symptoms: At their worst the symptoms were mild in the emergency department the symptoms are unchanged. The patient has not experienced similar symptoms in the past. The patient has not recently seen a physician. Historical: - Allergies: 12:01 Codeine; ll1 12:01 Ciprofloxacin; ll1 12:01 Deltasone; ll1 12:01 Doryx; ll1 12:01 Bextra; ll1 12:01 Hemocyte-F; ll1 12:01 annaprox; ll1 12:01 Lisinopril; ll1 12:01 Ampicillin; ll1 12:01 relafen; ll1 12:01 tramadol; ll1 - PMHx: 12:01 Atrial Fib; Degenerative disc disease; High Cholesterol; Hypothyroidism; RLS; ll1 - Immunization history:: Client reports receiving the 2nd dose of the Covid vaccine. - Social history:: Smoking status: Patient denies any tobacco usage or history of. ROS: 12:38 Eyes: Negative for injury, pain, redness, and discharge, ENT: Negative for injury, jr8 pain, and discharge, Neck: Negative for injury, pain, and swelling, Cardiovascular: Negative for chest pain, palpitations, and edema, Respiratory: Negative for shortness of breath, cough, wheezing, and pleuritic chest pain, Back: Negative for injury and pain, MS/Extremity: Negative for injury and deformity, Skin: Negative for injury, rash, and discoloration, Neuro: Negative for headache, weakness, numbness, tingling, and seizure. 12:38 Abdomen/GI: Positive for abdominal pain, black/tarry stool, Negative for nausea, vomiting, and diarrhea, abdominal cramps, abdominal distension, hematemesis, rectal bleeding, bowel incontinence, flatulence. Exam: 12:38 Constitutional: This is a well developed, well nourished patient who is awake, alert, jr8 and in no acute distress. Cardiovascular: Regular rate and rhythm with a normal S1 and S2. No gallops, murmurs, or rubs. Normal PMI, no JVD. No pulse deficits. Respiratory: Lungs have equal breath sounds bilaterally, clear to auscultation and percussion. No rales, rhonchi or wheezes noted. No increased work of breathing, no retractions or nasal flaring. Back: No spinal tenderness. No costovertebral tenderness. Full range of motion. Skin: Warm, dry with normal turgor. Normal color with no rashes, no lesions, and no evidence of cellulitis. MS/ Extremity: Pulses equal, no cyanosis. Neurovascular intact. Full, normal range of motion. Neuro: Awake and alert, GCS 15, oriented to person, place, time, and situation. Cranial nerves II-XII grossly intact. Motor strength 5/5 in all extremities. Sensory grossly intact. 12:38 Abdomen/GI: Inspection: abdomen appears normal, Bowel sounds: active, all quadrants, Palpation: soft, in all quadrants, mild abdominal tenderness, in the left lower quadrant, mass, is not appreciated, rebound tenderness, is not appreciated, voluntary guarding, is not appreciated, involuntary guarding, is not appreciated, no appreciated organomegaly, Indicators: McBurney's point is not tender, Baxter's sign is negative, Rovsing's sign is negative, Liver: no appreciated palpable abnormalities, tenderness, is not appreciated. Vital Signs: 12:02 BP 142 / 84; Pulse 73; Resp 17; Temp 98.1; Pulse Ox 99% ; Weight 59.87 kg; Height 5 ft. ll1 2 in. (157.48 cm); Pain 4/10; 13:22 BP 151 / 86; Pulse 68; Resp 16 S; Pulse Ox 99% on R/A; aa5 15:30 BP 166 / 67; Pulse 70; Resp 18 S; Pulse Ox 97% on R/A; aa5 17:35 BP 127 / 75; Pulse 70; Resp 16 S; Temp 97.8(TE); Pulse Ox 100% on R/A; aa5 18:25 BP 134 / 69; Pulse 68; Resp 18 S; Pulse Ox 99% on R/A; aa5 12:02 Body Mass Index 24.14 (59.87 kg, 157.48 cm) ll1 MDM: 12:05 Patient medically screened. [facility] 15:45 Data reviewed: vital signs, nurses notes, lab test result(s), radiologic studies, CT [facility] scan. Data interpreted: Pulse oximetry: on room air is 97 %. Interpretation: normal. Counseling: I had a detailed discussion with the patient and/or guardian regarding: the historical points, exam findings, and any diagnostic results supporting the discharge/admit diagnosis, lab results, radiology results, the need to transfer to another facility, [facility] does not immediately have the required specialist. ED course: Spoke to Dr. Arceo about patient's condition. 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 05/19 12:18 Order name: Basic Metabolic Panel; Complete Time: 13:18 [facility] 05/19 12:18 Order name: CBC with Diff; Complete Time: 13:25 [facility] 05/19 12:18 Order name: Hepatic Function; Complete Time: 13:18 [facility] 05/19 12:18 Order name: Lipase; Complete Time: 13:18 [facility] 05/19 12:18 Order name: TS; Complete Time: 13:40 [facility] 05/19 12:45 Order name: Manual Differential; Complete Time: 13:25 [facility] 05/19 13:19 Order name: CT Abd/Pelvis - IV Contrast Only; Complete Time: 13:59 [facility] 05/19 14:15 Order name: CT Chest Wo Con; Complete Time: 14:55 [facility] 05/19 14:23 Order name: COVID-19 : Document "Date of Symptom Onset" if Symptomatic. [facility] 05/19 15:37 Order name: Blood Culture Adult (2) [facility] 05/19 15:38 Order name: Blood Culture [facility] 05/19 17:11 Order name: SARS-COV-2 RT PCR; Complete Time: 17:12 [facility] 05/19 12:18 Order name: IV Saline Lock; Complete Time: 12:33 jr8 05/19 12:18 Order name: Labs collected and sent; Complete Time: 12:33 jr8 Administered Medications: 14:00 Drug: NS 0.9% 500 ml Route: IV; Rate: bolus; Site: right forearm; aa5 14:40 Follow up: IV Status: Completed infusion; IV Intake: 500ml aa5 15:25 Drug: Cefepime 1 grams Route: IVPB; Rate: 200 ml/hr; Infused Over: 30 mins; Site: right aa5 forearm; 16:00 Follow up: Response: No adverse reaction; IV Status: Completed infusion aa5 16:41 Drug: vancoMYCIN 1 grams Route: IVPB; Infused Over: 2 hrs; Site: right forearm; aa5 18:40 Follow up: Response: No adverse reaction; IV Status: Completed infusion aa5 16:50 Drug: fentaNYL (PF) 25 mcg Route: IVP; Site: right forearm; aa5 17:00 Follow up: Response: No adverse reaction aa5 17:38 Drug: fentaNYL (PF) 25 mcg Route: IVP; Site: right forearm; aa5 17:45 Follow up: Response: No adverse reaction aa5 18:30 Drug: morphine 4 mg Route: IVP; Site: right forearm; aa5 18:40 Follow up: Response: No adverse reaction aa5 Disposition Summary: 05/19/21 15:49 Transfer Ordered Transfer Location: [facility] jr8 Reason: Higher level of care jr8 Condition: Stable jr8 Problem: new jr8 Symptoms: have improved jr8 Accepting Physician: Dr. Arceo(05/19/21 18:44) aa5 Diagnosis - Renal and perinephric abscess jr8 - Unspecified Pulmonary Nodules jr8 - Liver Masses jr8 Forms: - Medication Reconciliation Form jr8 - SBAR form jr8 Addendum: 05/22/2021 06:59 Co-signature as Attending Physician, Salvador Infante MD I agree with the assessment and r n plan of care. Attestation: The patient's history, exam findings, diagnostics, and a summary of any interventions or procedures was reviewed in detail with Zackery MARK. Signatures: Dispatcher [employer] Salvador Elizondo MD MD rn Calderon, Audri RN RN aa5 Zackery Parker PA PA jr8 Darius, Lynsay, RN RN ll1 Corrections: (The following items were deleted from the chart) 05/19 15:56 15:49 Dr. Adis alexander jr8 16:15 14:24 CORONAVIRUS ordered. EDMS EDMS 18:44 15:56 Dr. Adis alexander aa5
--- NOTE | 2021-05-19 15:50 | ER ---
Nurse's Notes [facility] Name: Melani Jimenez Age: 85 yrs Sex: Female : 1935 Arrival Date: 05/19/2021 Time: 11:55 Bed 6 Private MD: Diagnosis: Renal and perinephric abscess;Unspecified Pulmonary Nodules;Liver Masses Presentation: 05/19 12:02 Chief complaint: Patient states: Black grainy stools since yesterday. Was admitted 2 ll1 weeks ago for abd pain and flank pain. No known fever. Some nausea. Coronavirus screen: Vaccine status: Patient reports receiving the 2nd dose of the covid vaccine. Client denies travel out of the [place] in the last 14 days. At this time, the client does not indicate any symptoms associated with coronavirus-19. Ebola Screen: Patient denies travel to an Ebola-affected area in the 21 days before illness onset. Initial Sepsis Screen: Does the patient meet any 2 criteria? No. Patient's initial sepsis screen is negative. Does the patient have a suspected source of infection? Yes: Acute abdominal pain. Risk Assessment: Do you want to hurt yourself or someone else? Patient reports no desire to harm self or others. Onset of symptoms was May 18, 2021. 12:02 Method Of Arrival: Wheelchair ll1 12:02 Acuity: DUC 3 ll1 Historical: - Allergies: 12:01 Codeine; ll1 12:01 Ciprofloxacin; ll1 12:01 Deltasone; ll1 12:01 Doryx; ll1 12:01 Bextra; ll1 12:01 Hemocyte-F; ll1 12:01 annaprox; ll1 12:01 Lisinopril; ll1 12:01 Ampicillin; ll1 12:01 relafen; ll1 12:01 tramadol; ll1 - PMHx: 12:01 Atrial Fib; Degenerative disc disease; High Cholesterol; Hypothyroidism; RLS; ll1 - Immunization history:: Client reports receiving the 2nd dose of the Covid vaccine. - Social history:: Smoking status: Patient denies any tobacco usage or history of. Screenin:20 Abuse screen: Denies threats or abuse. Nutritional screening: No deficits noted. aa5 Tuberculosis screening: No symptoms or risk factors identified. Fall Risk None identified. Assessment: 12:20 General: Appears comfortable, Behavior is calm, cooperative. Pain: Complains of pain in aa5 left lower quadrant and anterior aspect of left lateral abdomen Pain currently is 4 out of 10 on a pain scale. Quality of pain is described as aching, Is continuous. Neuro: Level of Consciousness is awake, alert, obeys commands, Oriented to person, place, time, situation. Cardiovascular: Patient's skin is warm and dry. Respiratory: Airway is patent Respiratory effort is even, unlabored, Respiratory pattern is regular, symmetrical. GI: Abdomen is round non-distended, Bowel sounds present X 4 quads. Abd is soft and non tender X 4 quads. Reports black stools since yesterday Patient currently denies nausea, vomiting. : No signs and/or symptoms were reported regarding the genitourinary system. EENT: No signs and/or symptoms were reported regarding the EENT system. Derm: Skin is pink, warm \T\ dry. Musculoskeletal: Range of motion: intact in all extremities. 12:28 Reassessment: Patient is alert, oriented x 3, equal unlabored respirations, skin aa5 warm/dry/pink. 13:22 Reassessment: Patient is alert, oriented x 3, equal unlabored respirations, skin aa5 warm/dry/pink. 13:24 Reassessment: Pt to CT. aa5 15:20 Reassessment: Patient is alert, oriented x 3, equal unlabored respirations, skin aa5 warm/dry/pink. PA at bedside discussing results with pt and pt's . . 16:43 Reassessment: Patient is alert, oriented x 3, equal unlabored respirations, skin aa5 warm/dry/pink. Pt c/o chronic back pain, PA was notified (see MAR). Awaiting transfer to [facility] . 17:38 Reassessment: Patient is alert, oriented x 3, equal unlabored respirations, skin aa5 warm/dry/pink. Awaiting EMS for transfer. . 17:56 Reassessment: Awaiting EMS for transfer. . aa5 18:30 Reassessment: Patient is alert, oriented x 3, equal unlabored respirations, skin aa5 warm/dry/pink. Vital Signs: 12:02 BP 142 / 84; Pulse 73; Resp 17; Temp 98.1; Pulse Ox 99% ; Weight 59.87 kg; Height 5 ft. ll1 2 in. (157.48 cm); Pain 4/10; 13:22 BP 151 / 86; Pulse 68; Resp 16 S; Pulse Ox 99% on R/A; aa5 15:30 BP 166 / 67; Pulse 70; Resp 18 S; Pulse Ox 97% on R/A; aa5 17:35 BP 127 / 75; Pulse 70; Resp 16 S; Temp 97.8(TE); Pulse Ox 100% on R/A; aa5 18:25 BP 134 / 69; Pulse 68; Resp 18 S; Pulse Ox 99% on R/A; aa5 12:02 Body Mass Index 24.14 (59.87 kg, 157.48 cm) ll1 ED Course: 11:55 Patient arrived in ED. as 12:01 Arm band placed on. ll1 12:03 Triage completed. ll1 12:03 Patient placed in an exam room, on a stretcher. ll1 12:05 Zackery Parker PA is PHCP. jr8 12:05 Salvador Infante MD is Attending Physician. jr8 12:08 Neetu Shen RN is Primary Nurse. jl7 12:20 Patient has correct armband on for positive identification. Bed in low position. Call aa5 light in reach. Side rails up X2. Adult w/ patient. 12:28 Initial lab(s) drawn, by me, sent to lab. Inserted saline lock: 20 gauge in right aa5 forearm, using aseptic technique. Blood collected. 13:36 CT Abd/Pelvis - IV Contrast Only In Process Unspecified. EDMS 14:29 CT Chest Wo Con In Process Unspecified. EDMS 15:25 initiated a transfer with LISSY Gracia from the [facility] [place]. eb 15:[address] Arceo the hospitalist combination saw operator for [facility] with Zackery Rao for patient eb transfer consultation. 15:[address] Boyd the urologist combination saw operator for [facility] with Zackery Rao for patient eb transfer consultation. 16:07 administrative approval given by LISSY Gracia/ patient has been accepted to [facility] eb 16 tower room 1610/ Dr. Arceo has accepted the patient in transfer/ report to be called to [phone]. 16:30 First set of blood cultures drawn by me. aa5 16:40 Second set of blood cultures drawn by me. aa5 18:30 No provider procedures requiring assistance completed. Patient transferred, IV remains aa5 in place. Administered Medications: 14:00 Drug: NS 0.9% 500 ml Route: IV; Rate: bolus; Site: right forearm; aa5 14:40 Follow up: IV Status: Completed infusion; IV Intake: 500ml aa5 15:25 Drug: Cefepime 1 grams Route: IVPB; Rate: 200 ml/hr; Infused Over: 30 mins; Site: right aa5 forearm; 16:00 Follow up: Response: No adverse reaction; IV Status: Completed infusion aa5 16:41 Drug: vancoMYCIN 1 grams Route: IVPB; Infused Over: 2 hrs; Site: right forearm; aa5 18:40 Follow up: Response: No adverse reaction; IV Status: Completed infusion aa5 16:50 Drug: fentaNYL (PF) 25 mcg Route: IVP; Site: right forearm; aa5 17:00 Follow up: Response: No adverse reaction aa5 17:38 Drug: fentaNYL (PF) 25 mcg Route: IVP; Site: right forearm; aa5 17:45 Follow up: Response: No adverse reaction aa5 18:30 Drug: morphine 4 mg Route: IVP; Site: right forearm; aa5 18:40 Follow up: Response: No adverse reaction aa5 Intake: 14:40 IV: 500ml; Total: 500ml. aa5 Outcome: 15:49 ER care complete, transfer ordered by MD. alexander 18:30 Transferred by [facility] to [facility], Transfer form completed. aa5 X-rays sent w/ patient. Note: Report given to [facility] 18:30 Condition: stable 18:30 Discharge instructions given to patient, family, Instructed on the need for transfer, Demonstrated understanding of instructions. 18:40 Patient left the ED. aa5 Addendum: 05/23/2021 18:22 Addendum: Culture Results: Positive blood culture. Phone call Attempt #1 Faxed Culture s s report to [facility] ATTN: Ruth Ann. Signatures: Dispatcher [employer] EDMS Cielo Wolff Audri, RN RN aa5 Alice Thompson RN RN Zackery Parker PA PA jr8 Neetu Shen RN RN jl7 Kailyn Carpenter Lynsay RN RN ll1 Corrections: (The following items were deleted from the chart) 05/19 18:57 18:44 Patient left the ED. aa5 aa5
[2021-05-19] MEDS ORDERED: FENTANYL CITR 100 MCG/2 ML ONE (17:12)
[2021-05-19] MEDS ORDERED: MORPHINE 4 MG/ML SYR ONE (18:49)
[2021-05-19 18:58] VITALS: BP 127/75; TEMP 97.8; O2SAT 100
== END 2021-05-19 18:44 | disposition short-term general hospital (02) ==
LOC: ER 11:52
DX: N15.1 Renal and perinephric abscess (principal); R16.0 Hepatomegaly, not elsewhere classified; R91.8 Other nonspecific abnormal finding of lung field; Z88.1 Allergy status to other antibiotic agents; Z88.5 Allergy status to narcotic agent; Z88.8 Allergy status to other drugs, medicaments and biological substances
CPT/HCPCS: 96365; 96367; 96361; 87040 ×2; 85025; 80048; 36415; 86900; 86850; 87205 ×3; 86901; 80076; 87077 ×2; 87186 ×2; 83690; 71250; 74177; 96375; 99285; 96366; U0003; Q9967; J3010; J3370; J0692; J7040